=== PATIENT | female | born 1945 | race Caucasian/White ===

== ENCOUNTER → 2016-06-23 | Outpatient (CLI) | payer MEDICARE ==
--- NOTE | 2016-06-27 07:38 | MM ---
Reason for exam: screening (asymptomatic). Last mammogram was performed 1 year ago. History: Patient is postmenopausal and has history of other cancer at age 65. Cyst aspiration of the left breast, 2001. Took hormonal contraceptives for 10 years. Took estrogen for 10 years. Took other hormone for 5 years. Physical Findings: A clinical breast exam by your physician is recommended on an annual basis and results should be correlated with mammographic findings. MG 3D Screening Mammo W/Cad Bilateral CC and MLO view(s) were taken. Prior study comparison: June 23, 2015, bilateral MG 3d screening mammo w/cad. February 12, 2014, mammogram, performed at [facility]. January 25, 2013, mammogram, performed at [facility]. January 20, 2011, mammogram, performed at [place]. The breast tissue is heterogeneously dense. This may lower the sensitivity of mammography. No significant changes when compared with prior studies. ASSESSMENT: Negative, BI-RAD 1 RECOMMENDATION: Routine screening mammogram of both breasts in 1 year.
== END | disposition home or self-care (01) ==
LOC: RADMAMWWP 12:41
PROVIDERS: ATTEND Pediatrics
DX: Z12.31 Encounter for screening mammogram for malignant neoplasm of breast (principal)
CPT/HCPCS: 77063; G0202

== ENCOUNTER → 2016-06-28 | Outpatient (CLI) | payer MEDICARE ==
--- NOTE | 2016-06-28 11:02 | XR ---
EXAMINATION TYPE: XR chest 2V DATE OF EXAM: 06/28/2016 10:46 AM COMPARISON: Prior chest x-ray August 27, 2011. HISTORY: Cough and congestion. TECHNIQUE: Frontal and lateral views of the chest are obtained. FINDINGS: There is no focal air space opacity, pleural effusion, or pneumothorax seen. The cardiac silhouette size is within normal limits. The osseous structures are intact. IMPRESSION: No acute cardiopulmonary process.
== END ==
LOC: RADXRMAIN 10:23
PROVIDERS: ATTEND Nurse Practitioner Family
DX: J18.9 Pneumonia, unspecified organism (principal)
CPT/HCPCS: 71020

== ENCOUNTER 2016-12-30 09:11 | Inpatient (IN) | payer MEDICARE ==
[2016-12-30] MEDS ORDERED: methylPREDNISolone SOD SUCCI 125 MG/2 ML VIAL IV STA (09:37)
[2016-12-30] MEDS ORDERED: IPRATROPIUM 0.5 MG/2.5 ML NEBU INHALATION STA (09:37)
[2016-12-30] MEDS ORDERED: ALBUTEROL NEBULIZED 2.5 MG/3 ML INHALATION STA ×2 (09:37→10:11)
--- NOTE | 2016-12-30 09:40 | ED ---
General Adult HPI - General Chief complaint: Shortness of Breath Stated complaint: ALIYAH Time Seen by Provider: 12/30/16 09:15 Source: patient, RN notes reviewed Mode of arrival: ambulatory Limitations: no limitations - History of Present Illness Initial comments: This is a 71-year-old female who presents with a past medical history significant for asthma. Patient states she started having a sore throat and some ear pressure approximately a week ago. Patient states the symptoms continued and she was having more more shortness of breath so she was using her inhaler more often. Patient states that she went to see her primary medical care doctor a couple days ago he put her on steroids and antibiotics and told to continue to use her treatment. Patient states last night she woke up early this morning and was unable to breathe even after using her inhaler so she woke up this morning try to get to see her doctor but was unable to so she came to the emergency department. Patient states the shortness of breath seems worse now than it did earlier in the week per patient denies any chest pain. Patient denies abdominal pain patient denies nausea vomiting diarrhea. Patient denies any fever or chills. Patient denies any headache patient denies numbness weakness. Patient denies lightheadedness dizziness or near-syncopal episode. Patient denies any smoking history. - Related Data Home Medications Medication Instructions Recorded Confirmed Albuterol Inhaler [Ventolin Hfa 2 puff INHALATION RT-Q4H PRN 12/30/16 12/30/16 Inhaler] Ascorbic Acid [Vitamin C] 1,000 mg PO DAILY 12/30/16 12/30/16 Azithromycin [Zithromax Z-pack] See Taper PO DIRECTED 12/30/16 12/30/16 Bone Up 1 tab PO DAILY 12/30/16 12/30/16 Cholecalciferol [Vitamin D3] 1,000 unit PO DAILY 12/30/16 12/30/16 Estradiol [Yuvafem] 10 mcg VAGINAL MOTH 12/30/16 12/30/16 Multivitamins, Thera [Multivitamin 1 tab PO DAILY 12/30/16 12/30/16 (formulary)] [place] 3-6-9 1 cap PO DAILY 12/30/16 12/30/16 Vitamin B Complex 1 cap PO DAILY 12/30/16 12/30/16 predniSONE 40 mg PO DAILY 12/30/16 12/30/16 Allergies Allergy/AdvReac Type Severity Reaction Status Date / Time erythromycin base Allergy Rash/Hives Verified 12/30/16 09:58 Latex, Natural Rubber Allergy Itching Verified 12/30/16 09:58 Sulfa (Sulfonamide Allergy Rash/Hives Verified 12/30/16 09:58 Antibiotics) adhesive tape AdvReac Rash/Hives Verified 12/30/16 09:58 oyster extract AdvReac Vomiting Verified 12/30/16 09:58 Review of Systems ROS Statement: Those systems with pertinent positive or pertinent negative responses have been documented in the HPI. ROS Other: All systems not noted in ROS Statement are negative. Past Medical History Past Medical History: Asthma, Hyperlipidemia Additional Past Medical History / Comment(s): splenic marginal zone lymphoma 2009 History of Any Multi-Drug Resistant Organisms: None Reported Past Surgical History: Appendectomy, Hysterectomy, Tubal Ligation Smoking Status: Former smoker Past Alcohol Use History: None Reported Past Drug Use History: None Reported General Exam - General Exam Comments Initial Comments: GENERAL: Patient is well-developed and well-nourished. Patient is nontoxic and well- hydrated and is in mild distress. ENT: Neck is soft and supple. No significant lymphadenopathy is noted. Oropharynx is clear. Moist mucous membranes. Neck has full range of motion without eliciting any pain. EYES: The sclera were anicteric and conjunctiva were pink and moist. Extraocular movements were intact and pupils were equal round and reactive to light. Eyelids were unremarkable. PULMONARY: Unlabored respirations. Good breath sounds bilaterally. No audible rales rhonchi or wheezing was noted. CARDIOVASCULAR: There is a regular rate and rhythm without any murmurs gallops or rubs. ABDOMEN: Soft and nontender with normal bowel sounds. No palpable organomegaly was noted. There is no palpable pulsatile mass. SKIN: Skin is clear with no lesions or rashes and otherwise unremarkable. NEUROLOGIC: Patient is alert and oriented x3. Cranial nerves II through XII are grossly intact. Motor and sensory are also intact. Normal speech, volume and content. Symmetrical smile. MUSCULOSKELETAL: Normal extremities with adequate strength and full range of motion. LYMPHATICS: No significant lymphadenopathy is noted PSYCHIATRIC: Normal psychiatric evaluation. Normal interpersonal interactions appears functionally intact in deals appropriately with others. No signs of depression. No signs of anxiety. Limitations: no limitations Course Vital Signs 12/30/16 12/30/16 12/30/16 09:13 09:56 10:12 Temperature 98.9 F Pulse Rate 87 78 79 Respiratory 24 Rate Blood Pressure 205/80 O2 Sat by Pulse 99 Oximetry 12/30/16 12/30/16 12/30/16 10:14 10:24 10:50 Temperature Pulse Rate 83 88 103 H Respiratory 20 Rate Blood Pressure 142/62 O2 Sat by Pulse 97 Oximetry Medical Decision Making - Medical Decision Making EKG shows normal sinus rhythm at 83 bpm IA interval 254 QRS is 74 QT interval 370 QTC is 434. Patient's EKG shows no ST segment elevation or depression or T wave abnormalities are noted. Patient got 3 breathing treatment as well as emergency department I evaluated the patient after her breathing treatments and she continued to wheeze diffusely. Patient states she felt a little better but could tell she was still wheezing. Patient also received steroids here. I spoke with because I admitted the patient I wrote admitting orders. Continue breathing treatments and steroids on the floor. - Lab Data Result diagrams: 12/30/16 10:00 12/30/16 10:00 Lab Results 12/30/16 12/30/16 12/30/16 Range/Units 10:00 10:00 10:00 WBC 4.8 (3.8-10.6) k/uL RBC 4.23 (3.80-5.40) m/uL Hgb 12.8 (11.4-16.0) gm/dL Hct 37.5 (34.0-46.0) % MCV 88.7 (80.0-100.0) fL MCH 30.3 (25.0-35.0) pg MCHC 34.1 (31.0-37.0) g/dL RDW 14.1 (11.5-15.5) % Plt Count 160 (150-450) k/uL Neutrophils % 64 % Lymphocytes % 22 % Monocytes % 9 % Eosinophils % 1 % Basophils % 1 % Neutrophils # 3.1 (1.3-7.7) k/uL Lymphocytes # 1.0 (1.0-4.8) k/uL Monocytes # 0.4 (0-1.0) k/uL Eosinophils # 0.0 (0-0.7) k/uL Basophils # 0.0 (0-0.2) k/uL PT (9.0-12.0) sec INR (<1.2) APTT (22.0-30.0) sec Sodium 140 (137-145) mmol/L Potassium 4.2 (3.5-5.1) mmol/L Chloride 104 (98-107) mmol/L Carbon Dioxide 26 (22-30) mmol/L Anion Gap 10 mmol/L BUN 17 (7-17) mg/dL Creatinine 0.63 (0.52-1.04) mg/dL Est GFR (MDRD) Af Amer >60 (>60 ml/min/1.73 sqM) Est GFR (MDRD) Non-Af >60 (>60 ml/min/1.73 sqM) Glucose 110 H (74-99) mg/dL Calcium 8.8 (8.4-10.2) mg/dL Magnesium 2.0 (1.6-2.3) mg/dL Total Bilirubin 0.4 (0.2-1.3) mg/dL AST 27 (14-36) U/L ALT 40 (9-52) U/L Alkaline Phosphatase 62 (38-126) U/L Total Creatine Kinase 181 H (30-135) U/L CK-MB (CK-2) 2.9 H* (0.0-2.4) ng/mL CK-MB (CK-2) Rel Index 1.6 Troponin I <0.012 (0.000-0.034) ng/mL Total Protein 6.9 (6.3-8.2) g/dL Albumin 4.4 (3.5-5.0) g/dL 12/30/16 Range/Units 10:00 WBC (3.8-10.6) k/uL RBC (3.80-5.40) m/uL Hgb (11.4-16.0) gm/dL Hct (34.0-46.0) % MCV (80.0-100.0) fL MCH (25.0-35.0) pg MCHC (31.0-37.0) g/dL RDW (11.5-15.5) % Plt Count (150-450) k/uL Neutrophils % % Lymphocytes % % Monocytes % % Eosinophils % % Basophils % % Neutrophils # (1.3-7.7) k/uL Lymphocytes # (1.0-4.8) k/uL Monocytes # (0-1.0) k/uL Eosinophils # (0-0.7) k/uL Basophils # (0-0.2) k/uL PT 11.5 (9.0-12.0) sec INR 1.1 (<1.2) APTT 22.4 (22.0-30.0) sec Sodium (137-145) mmol/L Potassium (3.5-5.1) mmol/L Chloride (98-107) mmol/L Carbon Dioxide (22-30) mmol/L Anion Gap mmol/L BUN (7-17) mg/dL Creatinine (0.52-1.04) mg/dL Est GFR (MDRD) Af Amer (>60 ml/min/1.73 sqM) Est GFR (MDRD) Non-Af (>60 ml/min/1.73 sqM) Glucose (74-99) mg/dL Calcium (8.4-10.2) mg/dL Magnesium (1.6-2.3) mg/dL Total Bilirubin (0.2-1.3) mg/dL AST (14-36) U/L ALT (9-52) U/L Alkaline Phosphatase (38-126) U/L Total Creatine Kinase (30-135) U/L CK-MB (CK-2) (0.0-2.4) ng/mL CK-MB (CK-2) Rel Index Troponin I (0.000-0.034) ng/mL Total Protein (6.3-8.2) g/dL Albumin (3.5-5.0) g/dL Critical Care Time Critical Care Time: Yes Total Critical Care Time: 35 Disposition Clinical Impression: Acute severe exacerbation of asthma Disposition: ADMITTED IP TO THIS HOSP Referrals: Franki Diego MD [Primary Care Provider] - 1-2 days Time of Disposition: 11:31
[2016-12-30 10:15] LABS: Basophils % (A) 1 %; CH 31.6; CHCM 35.8; Eosinophils % (A) 1 %; HCT 37.5 % (34.0-46.0); HDW 2.99; HGB 12.8 gm/dL (11.4-16.0); Luc # (Auto) 0.19; Luc % (Auto) 4; Lymphocytes % (A) 22 %; MCH 30.3 pg (25.0-35.0); MCHC 34.1 g/dL (31.0-37.0); MCV 88.7 fL (80.0-100.0); Mean Platelet Volume 8.1; Monocytes # (A) 0.4 k/uL (0-1.0); Monocytes % (A) 9 %; Neutrophils # (A) 3.1 k/uL (1.3-7.7); Neutrophils % (A) 64 %; RBC 4.23 m/uL (3.80-5.40); RDW 14.1 % (11.5-15.5); WBC 4.8 k/uL (3.8-10.6); WBC (Perox) 5.41
[2016-12-30 10:25] LABS: ALT 40 U/L (9-52); AST 27 U/L (14-36); Alkaline Phosphatase 62 U/L (38-126); Anion Gap 10 mmol/L; Blood Urea Nitrogen 17 mg/dL (7-17); Calcium 8.8 mg/dL (8.4-10.2); Carbon Dioxide 26 mmol/L (22-30); Chloride 104 mmol/L (98-107); Glucose 110 mg/dL (74-99); Non-African American GFR(MDRD) >60 (>60 ml/min/1.73 sqM); Potassium 4.2 mmol/L (3.5-5.1); Sodium 140 mmol/L (137-145); Total Bilirubin 0.4 mg/dL (0.2-1.3); Total Protein 6.9 g/dL (6.3-8.2)
[2016-12-30 10:28] LABS: INR 1.1 (<1.2); Partial Thromboplastin Time 22.4 sec (22.0-30.0); Prothrombin Time 11.5 sec (9.0-12.0)
--- NOTE | 2016-12-30 10:49 | XR ---
EXAMINATION TYPE: XR chest 2V DATE OF EXAM: 12/30/2016 COMPARISON: 06/28/2016 INDICATION: Difficulty breathing TECHNIQUE: Frontal and lateral views of the chest are obtained. FINDINGS: The heart size is normal. The pulmonary vasculature is normal. The lungs are clear. IMPRESSION: 1. No acute pulmonary process.
[2016-12-30 10:50] LABS: Creatine Kinase 181 U/L (30-135)
[2016-12-30 10:56] LABS: Troponin I <0.012 ng/mL (0.000-0.034)
[2016-12-30 11:00] LABS: Creatine Kinase MB 2.9 ng/mL (0.0-2.4)
[2016-12-30] MEDS ORDERED: IPRATROPIUM-ALBUTEROL 3 ML NEB INHALATION PRN (11:31)
[2016-12-30] MEDS: IPRATROPIUM-ALBUTEROL 3 ML NEB INHALATION SCH ×3 (15:06→23:02)
--- NOTE | 2016-12-30 15:16 | P.HPIM ---
History of Present Illness This is a 71-year-old female who presents with a past medical history significant for asthma. Patient states she started having a sore throat and some ear pressure approximately a week ago. Patient states the symptoms continued and she was having more more shortness of breath so she was using her inhaler more often. Patient states that she went to see her primary medical care doctor a couple days ago he put her on steroids and antibiotics and told to continue to use her treatment. Patient states last night she woke up early this morning and was unable to breathe even after using her inhaler so she woke up this morning try to get to see her doctor but was unable to so she came to the emergency department. Patient states the shortness of breath seems worse now than it did earlier in the week per patient denies any chest pain. Patient denies abdominal pain patient denies nausea vomiting diarrhea. Patient denies any fever or chills. Patient denies any headache patient denies numbness weakness. Patient denies lightheadedness dizziness or near-syncopal episode. Patient denies any smoking history. Review of Systems REVIEW OF SYSTEMS: CONSTITUTIONAL: No fever, no malaise, no fatigue. HEENT: No recent visual problems or hearing problems. Denied any sore throat. CARDIOVASCULAR: No chest pain, orthopnea, PND, no palpitations, no syncope. PULMONARY: As mentioned in HPI patient does have cough with yellowish sputum production GASTROINTESTINAL: No diarrhea, no nausea, no vomiting, no abdominal pain. Normoactive bowel sounds. NEUROLOGICAL: No headaches, no weakness, no numbness. HEMATOLOGICAL: Denies any bleeding or petechiae. GENITOURINARY: Denies any burning micturition, frequency, or urgency. MUSCULOSKELETAL/RHEUMATOLOGICAL: Denies any joint pain, swelling, or any muscle pain. ENDOCRINE: Denies any polyuria or polydipsia. The rest of the 14-point review of systems is negative. Past Medical History Past Medical History: Asthma, Hyperlipidemia Additional Past Medical History / Comment(s): splenic marginal zone lymphoma 2009, osteopenia History of Any Multi-Drug Resistant Organisms: None Reported Past Surgical History: Appendectomy, Hysterectomy, Tubal Ligation Additional Past Surgical History / Comment(s): Colonoscopies/benign polypectomies, bone marrow aspiration. Past Anesthesia/Blood Transfusion Reactions: No Reported Reaction Smoking Status: Former smoker - Past Family History Father History Unknown: Yes Additional Family Medical History / Comment(s): Patient is adopted and does not know any of father's hx. Mother History Unknown: Yes Additional Family Medical History / Comment(s): Pt is adopted and does not know any of her natural mother's hx. She has learned that her grandmother and a cousin on her mother's side had breast cancer. Medications and Allergies Home Medications Medication Instructions Recorded Confirmed Type Albuterol Inhaler [Ventolin Hfa 2 puff INHALATION RT-Q4H PRN 12/30/16 12/30/16 History Inhaler] Ascorbic Acid [Vitamin C] 1,000 mg PO DAILY 12/30/16 12/30/16 History Azithromycin [Zithromax Z-pack] See Taper PO DIRECTED 12/30/16 12/30/16 History Bone Up 1 tab PO DAILY 12/30/16 12/30/16 History Cholecalciferol [Vitamin D3] 1,000 unit PO DAILY 12/30/16 12/30/16 History Estradiol [Yuvafem] 10 mcg VAGINAL MOTH 12/30/16 12/30/16 History Multivitamins, Thera [Multivitamin 1 tab PO DAILY 12/30/16 12/30/16 History (formulary)] Mozier 3-6-9 1 cap PO DAILY 12/30/16 12/30/16 History Vitamin B Complex 1 cap PO DAILY 12/30/16 12/30/16 History predniSONE 40 mg PO DAILY 12/30/16 12/30/16 History Allergies Allergy/AdvReac Type Severity Reaction Status Date / Time erythromycin base Allergy Rash/Hives Verified 12/30/16 09:58 Latex, Natural Rubber Allergy Itching Verified 12/30/16 09:58 Sulfa (Sulfonamide Allergy Rash/Hives Verified 12/30/16 09:58 Antibiotics) adhesive tape AdvReac Rash/Hives Verified 12/30/16 09:58 oyster extract AdvReac Vomiting Verified 12/30/16 09:58 Physical Exam Vitals: Vital Signs Temp Pulse Pulse Resp BP BP Pulse Ox 12/30/16 15:08 97 96 12/30/16 12:48 98.2 F 110 H 18 152/57 93 L 12/30/16 12:16 97.3 F L 101 H 20 157/70 96 12/30/16 10:50 103 H 20 142/62 97 12/30/16 10:24 88 12/30/16 10:14 83 12/30/16 10:12 79 12/30/16 09:56 78 12/30/16 09:13 98.9 F 87 24 205/80 99 Intake and Output 12/30/16 12/30/16 12/30/16 06:59 14:59 22:59 Other: Weight 73.482 kg Patient Weight 12/31/16 06:59 Weight 73.482 kg PHYSICAL EXAMINATION: GENERAL: The patient is alert and oriented x3, not in any acute distress. Well developed, well nourished. HEENT: Pupils are round and equally reacting to light. EOMI. No scleral icterus. No conjunctival pallor. Normocephalic, atraumatic. Patient does have posterior pharyngeal erythema. No thyromegaly. CARDIOVASCULAR: S1 and S2 present. No murmurs, rubs, or gallops. PULMONARY: Chest is clear to auscultation, no crackles, patient does have significant expiratory wheezing not using axial muscles of breathing ABDOMEN: Soft, nontender, nondistended, normoactive bowel sounds. No palpable organomegaly. MUSCULOSKELETAL: No joint swelling or deformity. EXTREMITIES: No cyanosis, clubbing, or pedal edema. NEUROLOGICAL: Gross neurological examination did not reveal any focal deficits. SKIN: No rashes. Results CBC & Chem 7: 12/30/16 10:00 12/30/16 10:00 Labs: Abnormal Lab Results - Last 24 Hours (Table) 12/30/16 12/30/16 Range/Units 10:00 10:00 Glucose 110 H (74-99) mg/dL Total Creatine Kinase 181 H (30-135) U/L CK-MB (CK-2) 2.9 H* (0.0-2.4) ng/mL Thrombosis Risk Factor Assmnt - Choose All That Apply Any of the Below Risk Factors Present?: Yes Each Factor Represents 1 point: Obesity (BMI >25) Other Risk Factors: Yes Each Risk Factor Represents 2 Points: Age 61-74 years Other congenital or acquired thrombophilia - If yes, enter type in comment: No Thrombosis Risk Factor Assessment Total Risk Factor Score: 3 Thrombosis Risk Factor Assessment Level: Moderate Risk Assessment and Plan Plan: #1 acute hypoxic respiratory failure: Seconded to status asthmaticus patient appears to have chronic severe intermittent asthma and some seasonal ALLERGIES patient is on systemic steroids inhalational treatments which will be continued. Patient will complete her azithromycin. #2 upper respiratory tract infection mostly bacterial along with Bactrim bronchitis and pharyngitis: Patient will complete her antibiotic therapy with azithromycin. Next and #3 hyperlipidemia: Continue with his statin.
[2016-12-30] MEDS: methylPREDNISolone SOD SUCCI 40 MG/ML 1 ML VIAL IV SCH (16:52)
[2016-12-30] MEDS ORDERED: methylPREDNISolone SOD SUCCI 125 MG/2 ML VIAL IV SCH (18:00)
[2016-12-30] MEDS: ACETAMINOPHEN TAB 325 MG TAB PO PRN (21:07)
[2016-12-31] MEDS: methylPREDNISolone SOD SUCCI 40 MG/ML 1 ML VIAL IV SCH ×2 (00:40→09:33)
[2016-12-31] MEDS: IPRATROPIUM-ALBUTEROL 3 ML NEB INHALATION SCH ×4 (01:16→13:30)
[2016-12-31] MEDS: ACETAMINOPHEN TAB 325 MG TAB PO PRN (06:49)
[2016-12-31 07:42] VITALS: BP 158/81; TEMP 97
[2016-12-31] MEDS ORDERED: AZITHROMYCIN 250MG TABLET PO SCH (09:00)
[2016-12-31 09:13] VITALS: RESP 16
--- NOTE | 2016-12-31 13:36 | P.DS ---
Providers Date of admission: 12/30/16 11:31 Attending physician: Joseph Mcginnis Primary care physician: Franki Zacariasmley [facility] Course: 69-year-old pleasant female was admitted for asthma exacerbation with significant improvement in her symptoms patient still has been able expiratory wheezing but saturating well upon ablation patient is being discharged today in stable medical condition to home. PHYSICAL EXAMINATION: GENERAL: The patient is alert and oriented x3, not in any acute distress. Well developed, well nourished. HEENT: Pupils are round and equally reacting to light. EOMI. No scleral icterus. No conjunctival pallor. Normocephalic, atraumatic. No pharyngeal erythema. No thyromegaly. CARDIOVASCULAR: S1 and S2 present. No murmurs, rubs, or gallops. PULMONARY: Chest is clear to auscultation, minimal expiratory wheezing ABDOMEN: Soft, nontender, nondistended, normoactive bowel sounds. No palpable organomegaly. MUSCULOSKELETAL: No joint swelling or deformity. EXTREMITIES: No cyanosis, clubbing, or pedal edema. NEUROLOGICAL: Gross neurological examination did not reveal any focal deficits. SKIN: No rashes. #1 acute hypoxic respiratory failure: Seconded to status asthmaticus patient appears to have chronic severe intermittent asthma and some seasonal ALLERGIES Patient will complete her azithromycin course #2 upper respiratory tract infection mostly bacterial along with Bactrim bronchitis and pharyngitis: Patient will complete her antibiotic therapy with azithromycin. Next and #3 hyperlipidemia: Continue with his statin. Plan - Discharge Summary New Discharge Prescriptions: New Budesonide-Formot 160-4.5 Mcg [Symbicort 160-4.5 Mcg Inhaler] 2 puff INHALATION BID #1 inhaler Montelukast [Singulair] 10 mg PO DAILY #30 tab predniSONE 10 mg PO DAILY #30 tab Discontinued predniSONE 40 mg PO DAILY No Action Cholecalciferol [Vitamin D3] 1,000 unit PO DAILY Multivitamins, Thera [Multivitamin (formulary)] 1 tab PO DAILY Vitamin B Complex 1 cap PO DAILY Ascorbic Acid [Vitamin C] 1,000 mg PO DAILY Albuterol Inhaler [Ventolin Hfa Inhaler] 2 puff INHALATION RT-Q4H PRN PRN Reason: Shortness Of Breath Estradiol [Yuvafem] 10 mcg VAGINAL MOTH Azithromycin [Zithromax Z-pack] See Taper PO DIRECTED [place] 3-6-9 1 cap PO DAILY Bone Up 1 tab PO DAILY Discharge Medication List Albuterol Inhaler [Ventolin Hfa Inhaler] 2 puff INHALATION RT-Q4H PRN 12/30/16 [ History] Ascorbic Acid [Vitamin C] 1,000 mg PO DAILY 12/30/16 [History] Azithromycin [Zithromax Z-pack] See Taper PO DIRECTED 12/30/16 [History] Bone Up 1 tab PO DAILY 12/30/16 [History] Cholecalciferol [Vitamin D3] 1,000 unit PO DAILY 12/30/16 [History] Estradiol [Yuvafem] 10 mcg VAGINAL MOTH 12/30/16 [History] Multivitamins, Thera [Multivitamin (formulary)] 1 tab PO DAILY 12/30/16 [History ] [place] 3-6-9 1 cap PO DAILY 12/30/16 [History] Vitamin B Complex 1 cap PO DAILY 12/30/16 [History] Budesonide-Formot 160-4.5 Mcg [Symbicort 160-4.5 Mcg Inhaler] 2 puff INHALATION BID #1 inhaler 12/31/16 [Rx] Montelukast [Singulair] 10 mg PO DAILY #30 tab 12/31/16 [Rx] predniSONE 10 mg PO DAILY #30 tab 12/31/16 [Rx] Follow up Appointment(s)/Referral(s): Franki Diego MD [Primary Care Provider] - 3 Days Discharge Disposition: HOME SELF-CARE
[2016-12-31 13:43] VITALS: PULSE 107
== END 2016-12-31 13:51 | disposition home or self-care (01) | DRG 203 ==
LOC: EC 09:11 → 4MS4W 11:31
PROVIDERS: ADMIT Internal Medicine; ATTEND Internal Medicine
DX: J45.22 Mild intermittent asthma with status asthmaticus (principal); E78.5 Hyperlipidemia, unspecified; J40 Bronchitis, not specified as acute or chronic; M85.80 Other specified disorders of bone density and structure, unspecified site; Z79.899 Other long term (current) drug therapy; Z79.52 Long term (current) use of systemic steroids; Z90.710 Acquired absence of both cervix and uterus; Z87.891 Personal history of nicotine dependence; Z85.72 Personal history of non-Hodgkin lymphomas; J02.9 Acute pharyngitis, unspecified; Z88.1 Allergy status to other antibiotic agents; Z91.02 Food additives allergy status; Z91.040 Latex allergy status; Z88.2 Allergy status to sulfonamides; Z91.048 Other nonmedicinal substance allergy status
CPT/HCPCS: 36415; 71020; 80053; 82550; 82553; 83735; 84484; 85025; 85610; 85730; 87040; 93005; 94640; 94760; 96374; 99291

== ENCOUNTER → 2017-07-04 | Outpatient (CLI) | payer MEDICARE ==
--- NOTE | 2017-07-05 11:51 | MM ---
Reason for exam: screening (asymptomatic). Last mammogram was performed 1 year ago. History: Patient is postmenopausal and has history of other cancer at age 65. Family history of breast cancer in grandmother and breast cancer in cousin. Cyst aspiration of the left breast, 2001. Took hormonal contraceptives for 10 years. Took estrogen for 10 years. Took other hormone for 5 years. Physical Findings: A clinical breast exam by your physician is recommended on an annual basis and results should be correlated with mammographic findings. MG 3D Screening Mammo W/Cad Bilateral CC and MLO view(s) were taken. Prior study comparison: June 23, 2016, bilateral MG 3d screening mammo w/cad. June 23, 2015, bilateral MG 3d screening mammo w/cad. The breast tissue is heterogeneously dense. This may lower the sensitivity of mammography. No suspicious abnormality. ASSESSMENT: Negative, BI-RAD 1 RECOMMENDATION: Routine screening mammogram of both breasts in 1 year.
== END | disposition home or self-care (01) ==
LOC: RADMAMWWP 13:10
PROVIDERS: ATTEND Pediatrics
DX: Z12.31 Encounter for screening mammogram for malignant neoplasm of breast (principal)
CPT/HCPCS: 77063; 77067

== ENCOUNTER → 2017-07-14 | Outpatient (CLI) | payer MEDICARE ==
--- NOTE | 2017-07-14 14:07 | XR ---
EXAMINATION TYPE: XR lumbosacral spine min 4V DATE OF EXAM: 07/14/2017 CLINICAL HISTORY: pain COMPARISON: NONE TECHNIQUE: Frontal, lateral, and oblique images of the lumbar spine are obtained. FINDINGS: There are 5 lumbar type vertebral bodies identified. The lumbar spine shows satisfactory alignment without evidence of acute fracture or dislocation. Vertebral body heights are within normal limits. Mild degenerative narrowing L4-5 and L5-S1. 2 mm anterolisthesis L4 and L5. The overlying soft tissue appears unremarkable. IMPRESSION: No acute fracture or dislocation is seen in the lumbar spine.ICD 10 NO FRACTURE, INITIAL EVALUATION
== END | disposition home or self-care (01) ==
LOC: RADXRMAIN 13:37
PROVIDERS: ATTEND Pediatrics
DX: M54.9 Dorsalgia, unspecified (principal)
CPT/HCPCS: 72110

== ENCOUNTER → 2018-08-07 | Outpatient (CLI) | payer MEDICARE ==
--- NOTE | 2018-08-07 13:40 | BD ---
EXAMINATION TYPE: Axial Bone Density DATE OF EXAM: 08/07/2018 COMPARISON: NONE CLINICAL HISTORY: Height: 60 Weight: 150.5 FRAX RISK QUESTIONS: Alcohol (3 or more units per day): no Family History (Parent hip fracture): no Glucocorticoids (More than 3mos): no (Ex: prednisone, prednisolone, methylprednisolone, dexamethasone, and hydrocortisone). History of Fracture in Adulthood: yes Secondary Osteoporosis: 1. Type 1 Diabetes: no 2. Hyperthyroidism: no 3. Menopause before 45: no 4. Malnutrition: no 5. Chronic liver disease: no Rheumatoid Arthritis: no Current Tobacco Use: no RISK FACTORS HISTORY OF: Family History of Osteoporosis: unsure Active: sometimes Diet low in dairy products/other sources of calcium: no Postmenopausal woman: age 54 Lost more than 2 inches in height since high school: no MEDICATIONS: vitamins/ inhaler Additional History: EXAM MEASUREMENTS: Bone mineral densitometry was performed using the [employer] System. Bone mineral density as measured about the Lumbar spine is: ----- L1-L4(G/cm2): 0.929 T Score Values are as follows: ----- L2: -2.4 ----- L3: -2.0 ----- L4: -2.0 ----- L1-L4: -2.1 Bone mineral density has: increased 3.3 % since study of: 04.04.2016 Bone mineral density about the R hip (g/cm2): 0.724 Bone mineral density about the L hip (g/cm2): 0.714 T Score values are as follows: -----R Neck: -2.3 -----L Neck: -2.3 -----R Total: -1.1 -----L Total: -1.3 Bone mineral density has: decreased -3.5 % since study of: 04.04.2016 IMPRESSION: Osteopenia NOTE: T-SCORE=SD OF THE YOUNG ADULT MEAN.
--- NOTE | 2018-08-08 11:20 | MM ---
Reason for exam: screening (asymptomatic). Last mammogram was performed 1 year and 1 month ago. History: Patient is postmenopausal and has history of other cancer at age 65. Family history of breast cancer in grandmother and breast cancer in cousin. Cyst aspiration of the left breast, 2001. Took hormonal contraceptives for 10 years. Took estrogen for 10 years. Took other hormone for 5 years. Physical Findings: A clinical breast exam by your physician is recommended on an annual basis and results should be correlated with mammographic findings. MG 3D Screening Mammo W/Cad Bilateral CC and MLO view(s) were taken. Prior study comparison: July 04, 2017, bilateral MG 3d screening mammo w/cad. June 23, 2016, bilateral MG 3d screening mammo w/cad. The breast tissue is heterogeneously dense. This may lower the sensitivity of mammography. Benign appearing bilateral calcifications. No suspicious abnormality. No significant changes when compared with prior studies. ASSESSMENT: Benign, BI-RAD 2 RECOMMENDATION: Routine screening mammogram of both breasts in 1 year.
== END | disposition home or self-care (01) ==
LOC: RADMAMWWP 10:49
PROVIDERS: ATTEND Pediatrics
DX: Z12.31 Encounter for screening mammogram for malignant neoplasm of breast (principal); M85.80 Other specified disorders of bone density and structure, unspecified site
CPT/HCPCS: 77063; 77067; 77080

== ENCOUNTER → 2018-08-21 | Outpatient (CLI) | payer MEDICARE ==
--- NOTE | 2018-08-21 16:18 | US ---
EXAMINATION TYPE: US abdomen limited DATE OF EXAM: 08/21/2018 COMPARISON: NONE CLINICAL HISTORY: R10.11 RUQ PAIN. EXAM MEASUREMENTS: Liver Length: 13.2 cm Gallbladder Wall: 0.3 cm CBD: 0.3 cm Right Kidney: 10.0 x 4.5 x 5.2 cm Pancreas: Tail obscured by overlying bowel gas, visualized portion wnl Liver: wnl Gallbladder: wnl Evidence for sonographic Soares's sign: no CBD: wnl Right Kidney: wnl IMPRESSION: 1. Normal right upper quadrant ultrasound
== END | disposition home or self-care (01) ==
LOC: RADUSWWP 08:59
PROVIDERS: ATTEND Pediatrics
DX: R10.11 Right upper quadrant pain (principal)
CPT/HCPCS: 76705

== ENCOUNTER → 2020-06-18 | Outpatient (CLI) | payer MEDICARE ==
--- NOTE | 2020-06-19 09:58 | MM ---
Reason for exam: screening (asymptomatic). Last mammogram was performed 1 year and 10 months ago. History: Patient is postmenopausal and has history of other cancer at age 65. Family history of breast cancer in grandmother and breast cancer in cousin. Cyst aspiration of the left breast, 2001. Took hormonal contraceptives for 10 years. Took estrogen for 10 years. Took other hormone for 5 years. Physical Findings: A clinical breast exam by your physician is recommended on an annual basis and results should be correlated with mammographic findings. MG 3D Screening Mammo W/Cad Bilateral CC and MLO view(s) were taken. Prior study comparison: August 07, 2018, bilateral MG 3d screening mammo w/cad. July 04, 2017, bilateral MG 3d screening mammo w/cad. The breast tissue is heterogeneously dense. This may lower the sensitivity of mammography. No significant changes when compared with prior studies. ASSESSMENT: Benign, BI-RAD 2 RECOMMENDATION: Routine screening mammogram of both breasts in 1 year.
== END ==
LOC: RADMAMWWP 13:27
PROVIDERS: ATTEND Pediatrics
DX: Z12.31 Encounter for screening mammogram for malignant neoplasm of breast (principal); Z78.0 Asymptomatic menopausal state
CPT/HCPCS: 77063; 77067

== ENCOUNTER → 2020-10-21 | Outpatient (CLI) | payer MEDICARE ==
--- NOTE | 2020-10-22 07:27 | ECHOF ---
Referral Reason:Murmur MEASUREMENTS -------- HEIGHT: 132.1 cm WEIGHT: 72.6 kg BP: RVIDd: 3.2 cm (< 3.3) IVSd: 1.4 cm (0.6 - 1.1) LVIDd: 4.3 cm (3.9 - 5.3) LVPWd: 1.6 cm (0.6 - 1.1) IVSs: 1.5 cm LVIDs: 3.6 cm LVPWs: 1.5 cm LAESV Index (A-L): 31.81 ml/m Ao Diam: 3.1 cm (2.0 - 3.7) AV Cusp: 2.4 cm (1.5 - 2.6) LA Diam: 3.9 cm (2.7 - 3.8) MV EXCURSION: 20.130 mm (> 18.000) MV EF SLOPE: 69 mm/s (70 - 150) EPSS: 0.2 cm MV E Art: 0.60 m/s MV DecT: 253 ms MV A Art: 1.05 m/s MV E/A Ratio: 0.57 RAP: 5.00 mmHg RVSP: 19.09 mmHg FINDINGS -------- Sinus rhythm. This was a technically good study. The left ventricular size is normal. There is mild concentric left ventricular hypertrophy. Overa ll left ventricular systolic function is normal with, an EF between 55 - 60 %. The right ventricle is normal in size. LA is midly dilated 29-33ml/m2. The right atrial size is normal. There is mild aortic valve sclerosis. There is no evidence of aortic regurgitation. Mild mitral annular calcification present. Mild mitral regurgitation is present. No regurgitation noted Right ventricular systolic pressure is normal at < 35 mmHg. There is no pulmonic regurgitation present. The aortic root size is normal. There is no pericardial effusion. CONCLUSIONS -------- 1. The left ventricular size is normal. 2. There is mild concentric left ventricular hypertrophy. 3. Overall left ventricular systolic function is normal with, an EF between 55 - 60 %. 4. The right ventricle is normal in size. 5. LA is midly dilated 29-33ml/m2. 6. The right atrial size is normal. 7. There is mild aortic valve sclerosis. 8. Mild mitral annular calcification present. 9. Mild mitral regurgitation is present. 10. No regurgitation noted 11. There is no pulmonic regurgitation present. 12. The aortic root size is normal. 13. There is no pericardial effusion. RELATIONSHIP SPECIALIST: Ludmila Bernard RDCS
== END | disposition home or self-care (01) ==
LOC: RADECHMAIN 13:00
PROVIDERS: ATTEND Pediatrics
DX: I05.1 Rheumatic mitral insufficiency (principal)
CPT/HCPCS: 93306

== ENCOUNTER → 2021-07-29 | Outpatient (CLI) | payer MEDICARE ==
--- NOTE | 2021-07-30 06:34 | XR ---
EXAMINATION TYPE: XR tibia fibula 2 views RT, XR ankle complete 3 views RT DATE OF EXAM: 07/29/2021 COMPARISON: NONE HISTORY: 76-year-old female pain, M25.571,M79.604 FINDINGS: Tibia/fibula: No acute fracture seen of the more proximal or mid tibia or fibula. May be some mild degenerative spu rring at the knee. Ankle: Ankle mortise is congruent with preservation of the distal tibiofibular overlap. Talar dome is intact . Small and delineation to the Achilles tendon. Subtalar joint aligned. IMPRESSION: Tibia/fibula and ankle without acute osseous abnormality seen.
== END | disposition home or self-care (01) ==
LOC: RADXRMAIN 14:44
PROVIDERS: ATTEND Pediatrics
DX: M25.571 Pain in right ankle and joints of right foot (principal); M79.604 Pain in right leg

== ENCOUNTER 2022-02-08 08:32 | Inpatient (IN) | payer MEDICARE ==
[2022-02-08] MEDS ORDERED: IPRATROPIUM-ALBUTEROL 3 ML NEB INHALATION STA (09:11)
--- NOTE | 2022-02-08 09:16 | ED ---
SOB HPI - General Chief Complaint: Shortness of Breath Stated Complaint: asthma Time Seen by Provider: 02/08/22 08:48 Source: patient Mode of arrival: ambulatory Limitations: no limitations - History of Present Illness Initial Comments: Patient is 77-year-old woman who presents to have evaluation for shortness of breath and cough. She states that she has history of asthma and hypertension. She noticed that her breathing had changed last week. She went to see Dr. Diego and his clinic and was given an albuterol treatment which did help a bit, she was then prescribed a course of steroid to take as well. She had started a course of azithromycin that she had available at home prior to going to the clinic. She states that over the weekend her symptoms continued though only moderately. This morning she awoke with cough and shortness of breath which was worse than it had been and states that she was barely able to walk across the parking lot. MD Complaint: shortness of breath, cough -: days(s) Severity scale (1-10): 0 Consistency: constant Improves With: nothing Worsens With: nothing Known History Of: asthma Associated Symptoms: cough Treatments Prior to Arrival: bronchodilator, other - Related Data Home Medications Medication Instructions Recorded Confirmed Albuterol Inhaler [Ventolin Hfa 2 puff INHALATION RT-Q4H PRN 12/30/16 02/08/22 Inhaler] Ascorbic Acid [Vitamin C] 1,000 mg PO DAILY 12/30/16 02/08/22 Cholecalciferol [Vitamin D3 (25 25 mcg PO DAILY 02/08/22 02/08/22 Mcg = 1000 Iu)] Vit C/E/Zn/Coppr/Lutein/Zeaxan 1 cap PO DAILY 02/08/22 02/08/22 [Preservision Areds 2 Softgel] Vitamin E (Dl,Tocopheryl Acet) 400 unit PO DAILY 02/08/22 02/08/22 [Vitamin E (400 Iu = 180 mg)] Previous Rx's Medication Instructions Recorded Beclomethasone Dip 80 Mcg/Puff 1 puff INHALATION BID #8.7 gm 02/11/22 [Qvar 80 mcg] Doxycycline [Vibramycin] 100 mg PO BID #6 capsule 02/11/22 Valsartan 320 mg PO HS #30 tab 02/11/22 amLODIPine [Norvasc] 10 mg PO DAILY #30 tab 02/11/22 predniSONE [Deltasone] See Taper PO DIRECTED #16 tab 02/11/22 Allergies Allergy/AdvReac Type Severity Reaction Status Date / Time erythromycin base Allergy Rash/Hives Verified 02/08/22 10:28 Latex, Natural Rubber Allergy Itching Verified 02/08/22 10:28 Sulfa (Sulfonamide Allergy Rash/Hives Verified 02/08/22 10:28 Antibiotics) on chest adhesive tape AdvReac Welts Verified 02/08/22 10:28 oyster extract AdvReac Vomiting Verified 02/08/22 10:28 Review of Systems ROS Statement: Those systems with pertinent positive or pertinent negative responses have been documented in the HPI. ROS Other: All systems not noted in ROS Statement are negative. Constitutional: Denies: fever, chills Respiratory: Reports: cough, dyspnea, wheezes. Denies: hemoptysis Cardiovascular: Denies: chest pain, palpitations, orthopnea, edema, syncope Gastrointestinal: Denies: abdominal pain, vomiting, diarrhea Genitourinary: Denies: dysuria, hematuria Musculoskeletal: Denies: back pain Skin: Denies: rash Neurological: Denies: headache, weakness, numbness Past Medical History Past Medical History: Asthma, Hyperlipidemia Additional Past Medical History / Comment(s): splenic marginal zone lymphoma 2009, osteopenia History of Any Multi-Drug Resistant Organisms: None Reported Past Surgical History: Appendectomy, Hysterectomy, Tubal Ligation Additional Past Surgical History / Comment(s): Colonoscopies/benign polypectomies, bone marrow aspiration. Past Anesthesia/Blood Transfusion Reactions: No Reported Reaction Past Psychological History: No Psychological Hx Reported Smoking Status: Never smoker Past Alcohol Use History: None Reported Past Drug Use History: None Reported - Past Family History Father History Unknown: Yes Additional Family Medical History / Comment(s): Patient is adopted and does not know any of father's hx. Mother History Unknown: Yes Additional Family Medical History / Comment(s): Pt is adopted and does not know any of her natural mother's hx. She has learned that her grandmother and a cousin on her mother's side had breast cancer. General Exam Limitations: no limitations General appearance: alert, in no apparent distress Head exam: Present: atraumatic, normocephalic Eye exam: Present: normal appearance. Absent: scleral icterus, conjunctival injection Neck exam: Present: normal inspection Respiratory exam: Present: wheezes. Absent: rales, rhonchi, accessory muscle use, decreased breath sounds, prolonged expiratory Cardiovascular Exam: Present: regular rate, normal rhythm, normal heart sounds. Absent: systolic murmur, diastolic murmur, rubs, gallop GI/Abdominal exam: Present: soft. Absent: distended, tenderness, guarding, rebound, rigid, mass Extremities exam: Present: normal inspection, normal capillary refill. Absent: pedal edema, calf tenderness Back exam: Present: normal inspection. Absent: CVA tenderness (R), CVA tenderness (L) Neurological exam: Present: alert Skin exam: Present: warm, dry, intact, normal color. Absent: rash Course Vital Signs 02/08/22 02/08/22 02/08/22 08:38 09:45 09:56 Temperature 97.9 F Pulse Rate 84 78 68 Pulse Rate [ Pulse Oximetery ] Respiratory 20 Rate Blood Pressure 210/77 Blood Pressure [Right Arm] O2 Sat by Pulse 96 Oximetry 02/08/22 02/08/22 02/08/22 10:00 11:00 11:11 Temperature Pulse Rate 72 79 74 Pulse Rate [ Pulse Oximetery ] Respiratory 18 20 Rate Blood Pressure 150/67 165/89 Blood Pressure [Right Arm] O2 Sat by Pulse 94 L 94 L Oximetry 02/08/22 02/08/22 02/08/22 11:26 12:00 13:20 Temperature 99.2 F Pulse Rate 71 71 84 Pulse Rate [ Pulse Oximetery ] Respiratory 20 20 Rate Blood Pressure 136/64 149/66 Blood Pressure [Right Arm] O2 Sat by Pulse 95 93 L Oximetry 02/08/22 02/08/22 02/08/22 15:26 15:37 16:30 Temperature 98.2 F Pulse Rate 78 87 86 Pulse Rate [ Pulse Oximetery ] Respiratory 20 Rate Blood Pressure 189/86 Blood Pressure [Right Arm] O2 Sat by Pulse 94 L Oximetry 02/08/22 02/08/22 02/08/22 19:33 19:39 22:00 Temperature 98.3 F Pulse Rate 86 88 Pulse Rate [ Pulse Oximetery ] Respiratory 22 Rate Blood Pressure Blood Pressure [Right Arm] O2 Sat by Pulse Oximetry 02/09/22 02/09/22 02/09/22 02:00 04:19 04:29 Temperature 98.4 F Pulse Rate 88 76 Pulse Rate [ 76 Pulse Oximetery ] Respiratory 21 18 Rate Blood Pressure 230/111 Blood Pressure 175/75 [Right Arm] O2 Sat by Pulse 93 L 98 Oximetry 02/09/22 02/09/22 02/09/22 04:36 05:07 06:16 Temperature Pulse Rate 78 84 Pulse Rate [ Pulse Oximetery ] Respiratory 18 Rate Blood Pressure 209/102 202/92 Blood Pressure [Right Arm] O2 Sat by Pulse 97 Oximetry 02/09/22 02/09/22 07:00 07:12 Temperature 98.6 F Pulse Rate 86 Pulse Rate [ 87 Pulse Oximetery ] Respiratory 18 18 Rate Blood Pressure 189/88 Blood Pressure 166/70 [Right Arm] O2 Sat by Pulse 95 97 Oximetry Medical Decision Making - Lab Data Result diagrams: 02/09/22 06:51 02/09/22 06:51 Lab Results 02/08/22 02/08/22 02/08/22 Range/Units 09:33 09:33 09:33 WBC 6.0 (3.8-10.6) k/uL RBC 4.28 (3.80-5.40) m/uL Hgb 13.2 (11.4-16.0) gm/dL Hct 36.9 (34.0-46.0) % MCV 86.3 (80.0-100.0) fL MCH 30.8 (25.0-35.0) pg MCHC 35.7 (31.0-37.0) g/dL RDW 13.2 (11.5-15.5) % Plt Count 179 (150-450) k/uL MPV 8.5 Immature Gran % (Auto) % Absolute Nucleated RBC (0.00-0.00) X 10*3/uL Neutrophils % 65 % Lymphocytes % 20 % Monocytes % 10 % Eosinophils % 1 % Basophils % 1 % Immature Gran # (0.00-0.04) X 10*3/uL Neutrophils # 3.9 (1.3-7.7) k/uL Lymphocytes # 1.2 (1.0-4.8) k/uL Monocytes # 0.6 (0-1.0) k/uL Eosinophils # 0.1 (0-0.7) k/uL Basophils # 0.1 (0-0.2) k/uL NRBC/100 WBC Diff (0.0-0.0) /100 WBCS PT 11.1 (9.0-12.0) sec INR 1.0 (<1.2) APTT 20.5 L (22.0-30.0) sec Sodium 138 (137-145) mmol/L Potassium 3.6 (3.5-5.1) mmol/L Chloride 103 (98-107) mmol/L Carbon Dioxide 26 (22-30) mmol/L Anion Gap 9 mmol/L BUN 17 (7-17) mg/dL Creatinine 0.54 (0.52-1.04) mg/dL Est GFR (CKD-EPI)AfAm >90 (>60 ml/min/1.73 sqM) Est GFR (CKD-EPI)NonAf >90 (>60 ml/min/1.73 sqM) BUN/Creatinine Ratio (12.00-20.00) Ratio Glucose 112 H (74-99) mg/dL Calcium 8.5 (8.4-10.2) mg/dL Total Bilirubin 0.6 (0.2-1.3) mg/dL AST 20 (14-36) U/L ALT 23 (4-34) U/L Alkaline Phosphatase 58 (38-126) U/L Troponin I (0.000-0.034) ng/mL NT-Pro-B Natriuret Pep pg/mL Total Protein 6.8 (6.3-8.2) g/dL Albumin 4.5 (3.5-5.0) g/dL TSH (0.350-5.500) uIU/mL Coronavirus (PCR) (Not Detectd) Influenza Type A RNA (Not Detectd) Influenza Type B (PCR) (Not Detectd) 02/08/22 02/08/22 02/08/22 Range/Units 09:33 09:33 09:33 WBC (3.8-10.6) k/uL RBC (3.80-5.40) m/uL Hgb (11.4-16.0) gm/dL Hct (34.0-46.0) % MCV (80.0-100.0) fL MCH (25.0-35.0) pg MCHC (31.0-37.0) g/dL RDW (11.5-15.5) % Plt Count (150-450) k/uL MPV Immature Gran % (Auto) % Absolute Nucleated RBC (0.00-0.00) X 10*3/uL Neutrophils % % Lymphocytes % % Monocytes % % Eosinophils % % Basophils % % Immature Gran # (0.00-0.04) X 10*3/uL Neutrophils # (1.3-7.7) k/uL Lymphocytes # (1.0-4.8) k/uL Monocytes # (0-1.0) k/uL Eosinophils # (0-0.7) k/uL Basophils # (0-0.2) k/uL NRBC/100 WBC Diff (0.0-0.0) /100 WBCS PT (9.0-12.0) sec INR (<1.2) APTT (22.0-30.0) sec Sodium (137-145) mmol/L Potassium (3.5-5.1) mmol/L Chloride (98-107) mmol/L Carbon Dioxide (22-30) mmol/L Anion Gap mmol/L BUN (7-17) mg/dL Creatinine (0.52-1.04) mg/dL Est GFR (CKD-EPI)AfAm (>60 ml/min/1.73 sqM) Est GFR (CKD-EPI)NonAf (>60 ml/min/1.73 sqM) BUN/Creatinine Ratio (12.00-20.00) Ratio Glucose (74-99) mg/dL Calcium (8.4-10.2) mg/dL Total Bilirubin (0.2-1.3) mg/dL AST (14-36) U/L ALT (4-34) U/L Alkaline Phosphatase (38-126) U/L Troponin I <0.012 (0.000-0.034) ng/mL NT-Pro-B Natriuret Pep 139 pg/mL Total Protein (6.3-8.2) g/dL Albumin (3.5-5.0) g/dL TSH (0.350-5.500) uIU/mL Coronavirus (PCR) (Not Detectd) Influenza Type A RNA Not Detected (Not Detectd) Influenza Type B (PCR) Not Detected (Not Detectd) 02/08/22 02/09/22 02/09/22 Range/Units 09:33 06:51 06:51 WBC 6.62 (3.8-10.6) k/uL RBC 4.26 (3.80-5.40) m/uL Hgb 12.7 (11.4-16.0) gm/dL Hct 37.4 (34.0-46.0) % MCV 87.8 (80.0-100.0) fL MCH 29.8 (25.0-35.0) pg MCHC 34.0 (31.0-37.0) g/dL RDW 13.3 (11.5-15.5) % Plt Count 183 (150-450) k/uL MPV 10.9 Immature Gran % (Auto) 1.5 % Absolute Nucleated RBC 0 (0.00-0.00) X 10*3/uL Neutrophils % 65.3 % Lymphocytes % 20.2 % Monocytes % 11.9 % Eosinophils % 0.5 % Basophils % 0.6 % Immature Gran # 0.10 H (0.00-0.04) X 10*3/uL Neutrophils # 4.32 (1.3-7.7) k/uL Lymphocytes # 1.34 (1.0-4.8) k/uL Monocytes # 0.79 (0-1.0) k/uL Eosinophils # 0.03 L (0-0.7) k/uL Basophils # 0.04 (0-0.2) k/uL NRBC/100 WBC Diff 0 (0.0-0.0) /100 WBCS PT (9.0-12.0) sec INR (<1.2) APTT (22.0-30.0) sec Sodium 139 (137-145) mmol/L Potassium 3.6 (3.5-5.1) mmol/L Chloride 101 (98-107) mmol/L Carbon Dioxide 25.4 (22-30) mmol/L Anion Gap 12.60 mmol/L BUN 15.7 (7-17) mg/dL Creatinine 0.7 (0.52-1.04) mg/dL Est GFR (CKD-EPI)AfAm 96.2 (>60 ml/min/1.73 sqM) Est GFR (CKD-EPI)NonAf 83.0 (>60 ml/min/1.73 sqM) BUN/Creatinine Ratio 22.43 H (12.00-20.00) Ratio Glucose 121 H (74-99) mg/dL Calcium 8.8 (8.4-10.2) mg/dL Total Bilirubin (0.2-1.3) mg/dL AST (14-36) U/L ALT (4-34) U/L Alkaline Phosphatase (38-126) U/L Troponin I (0.000-0.034) ng/mL NT-Pro-B Natriuret Pep pg/mL Total Protein (6.3-8.2) g/dL Albumin (3.5-5.0) g/dL TSH 3.100 (0.350-5.500) uIU/mL Coronavirus (PCR) Not Detected (Not Detectd) Influenza Type A RNA (Not Detectd) Influenza Type B (PCR) (Not Detectd) - EKG Data -: EKG Interpreted by Me EKG shows normal: sinus rhythm, intervals (FL interval 166 ms, QTC 413 ms, both normal. QRS duration 137 ms, prolonged consistent with the right bundle-branch block.), QRS complexes (Right bundle-branch block.) Rate: normal (Rate 71 bpm) Disposition Clinical Impression: Asthma Disposition: ADMITTED IP TO THIS HOSP Is patient prescribed a controlled substance at d/c from ED?: No
[2022-02-08 09:45] LABS: Basophils # (A) 0.1 k/uL (0-0.2); Basophils % (A) 1 %; Eosinophils # (A) 0.1 k/uL (0-0.7); Eosinophils % (A) 1 %; HCT 36.9 % (34.0-46.0); HGB 13.2 gm/dL (11.4-16.0); Lymphocytes # (A) 1.2 k/uL (1.0-4.8); Lymphocytes % (A) 20 %; MCH 30.8 pg (25.0-35.0); MCHC 35.7 g/dL (31.0-37.0); MCV 86.3 fL (80.0-100.0); Mean Platelet Volume 8.5; Monocytes # (A) 0.6 k/uL (0-1.0); Monocytes % (A) 10 %; Neutrophils # (A) 3.9 k/uL (1.3-7.7); Neutrophils % (A) 65 %; Platelet Count 179 k/uL (150-450); RBC 4.28 m/uL (3.80-5.40); RDW 13.2 % (11.5-15.5)
--- NOTE | 2022-02-08 09:52 | XR ---
EXAMINATION TYPE: XR chest 2V DATE OF EXAM: 02/08/2022 9:46 AM COMPARISON: Chest radiographs from 12/30/2016. TECHNIQUE: XR chest 2V Frontal and lateral views of the chest. CLINICAL INDICATION:Female, 77 years old with history of difficulty breathing; FINDINGS: Lungs/Pleura: There is no evidence of pleural effusion, focal consolidation, or pneumothorax. Chroni c senescent parenchymal changes. Pulmonary vascularity: Unremarkable. Heart/mediastinum: Cardiomediastinal silhouette is unremarkable. Musculoskeletal: No acute osseous pathology. IMPRESSION: No acute cardiopulmonary disease/process. No significant change from prior examination.
[2022-02-08 09:59] LABS: ALT 23 U/L (4-34); AST 20 U/L (14-36); African American GFR (CKD) >90 (>60 ml/min/1.73 sqM); Albumin 4.5 g/dL (3.5-5.0); Alkaline Phosphatase 58 U/L (38-126); Anion Gap 9 mmol/L; Blood Urea Nitrogen 17 mg/dL (7-17); Calcium 8.5 mg/dL (8.4-10.2); Carbon Dioxide 26 mmol/L (22-30); Chloride 103 mmol/L (98-107); Glucose 112 mg/dL (74-99); Non-African American GFR(CKD) >90 (>60 ml/min/1.73 sqM); Potassium 3.6 mmol/L (3.5-5.1); Sodium 138 mmol/L (137-145); Total Bilirubin 0.6 mg/dL (0.2-1.3); Total Protein 6.8 g/dL (6.3-8.2)
[2022-02-08 10:03] LABS: Prothrombin Time 11.1 sec (9.0-12.0)
[2022-02-08 10:07] LABS: Partial Thromboplastin Time 20.5 sec (22.0-30.0)
[2022-02-08] MEDS ORDERED: ALBUTEROL NEBULIZED 2.5 MG/3 ML INHALATION STA (10:38)
[2022-02-08] MEDS ORDERED: predniSONE 20 MG TAB PO STA (10:38)
[2022-02-08] MEDS ORDERED: NALOXONE 0.4 MG/ML 1 ML VIAL IVP PRN (12:53)
[2022-02-08] MEDS: IPRATROPIUM-ALBUTEROL 3 ML NEB INHALATION SCH ×2 (15:26→19:25)
[2022-02-08] MEDS: HEPARIN SODIUM,PORCINE/PF 5,000 UNIT/0.5 ML SYRINGE SQ SCH ×2 (16:42→17:00)
[2022-02-08] MEDS: carvediloL 3.125 MG TAB PO SCH (16:42)
[2022-02-08] MEDS: ACETAMINOPHEN TAB 325 MG TAB PO PRN (16:42)
--- NOTE | 2022-02-08 22:25 | P.HPIM ---
History of Present Illness H&P Date: 02/08/22 Chief Complaint: Shortness of breath Patient is a 77-year-old female with a known history of asthma, hyperlipidemia presents to ER with complaints of worsening shortness of breath. Patient states that on Monday she started having sore throat and went to see her primary care physician. Patient was given steroid tablets and azithromycin antibiotic course. Patient took last 3 days without significant improvement and presented to ER. Otherwise patient denied any complaints of chest pain. No fever no chills. Patient was also complaining of sinus pain and sore throat. Cough with whitish initially and then into light yellow color. No nausea vomiting. Patient does have upper abdominal discomfort with cough. Next and chest x-ray showed no acute cardio pulmonary disease/process. No significant change from previous exam. Next and EKG showed normal sinus rhythm Laboratory data showed WBC 6.0 hemoglobin 13.2 and platelets 179 Sodium 138 potassium 3.6 chloride 103 bicarb is 26 BUN 17 and creatinine 0.54 living enzymes are not elevated Troponin 1 negative ProBNP 139): 19 not detected. Influenza A and B- Review of Systems Constitutional: Patient denies any fever or chills . No generalized weakness or weight loss. Abdomen: Patient denied nausea vomiting and diarrhea and abdominal pain. Cardiovascular: Patient denies any chest pain or short of breath no palpitations. Respiratory: Patient does have cough with yellow sputum production and shortness of breath Neurologic: Patient denied any numbness or tingling headache. Musculoskeletal: Patient denies any complaints of joint swelling or deformity. Skin: Negative Psychiatric: Negative Endocrine: No heat or cold intolerance. No recent weight gain. Genitourinary: No dysuria or hematuria. All other 14 point ROS negative except the above Past Medical History Past Medical History: Asthma, Hyperlipidemia Additional Past Medical History / Comment(s): splenic marginal zone lymphoma 2009, osteopenia History of Any Multi-Drug Resistant Organisms: None Reported Past Surgical History: Appendectomy, Hysterectomy, Tubal Ligation Additional Past Surgical History / Comment(s): Colonoscopies/benign polypectom ies, bone marrow aspiration. Past Anesthesia/Blood Transfusion Reactions: No Reported Reaction Past Psychological History: No Psychological Hx Reported Smoking Status: Never smoker Past Alcohol Use History: None Reported Past Drug Use History: None Reported - Past Family History Father History Unknown: Yes Additional Family Medical History / Comment(s): Patient is adopted and does not know any of father's hx. Mother History Unknown: Yes Additional Family Medical History / Comment(s): Pt is adopted and does not know any of her natural mother's hx. She has learned that her grandmother and a cousin on her mother's side had breast cancer. Medications and Allergies Home Medications Medication Instructions Recorded Confirmed Type Albuterol Inhaler [Ventolin Hfa 2 puff INHALATION RT-Q4H PRN 12/30/16 02/08/22 History Inhaler] Ascorbic Acid [Vitamin C] 1,000 mg PO DAILY 12/30/16 02/08/22 History Azithromycin [Zithromax Z-pack] See Taper PO DAILY 12/30/16 02/08/22 History Cholecalciferol [Vitamin D3 (25 25 mcg PO DAILY 02/08/22 02/08/22 History Mcg = 1000 Iu)] Vit C/E/Zn/Coppr/Lutein/Zeaxan 1 cap PO DAILY 02/08/22 02/08/22 History [Preservision Areds 2 Softgel] Vitamin E (Dl,Tocopheryl Acet) 400 unit PO DAILY 02/08/22 02/08/22 History [Vitamin E (400 Iu = 180 mg)] carvediloL [Coreg] 3.125 mg PO BID 02/08/22 02/08/22 History predniSONE [Deltasone] See Taper PO DIRECTED 02/08/22 02/08/22 History Allergies Allergy/AdvReac Type Severity Reaction Status Date / Time erythromycin base Allergy Rash/Hives Verified 02/08/22 10:28 Latex, Natural Rubber Allergy Itching Verified 02/08/22 10:28 Sulfa (Sulfonamide Allergy Rash/Hives Verified 02/08/22 10:28 Antibiotics) on chest adhesive tape AdvReac Welts Verified 02/08/22 10:28 oyster extract AdvReac Vomiting Verified 02/08/22 10:28 Physical Exam Vitals: Vital Signs Temp Pulse Resp BP Pulse Ox 02/08/22 15:26 78 02/08/22 13:20 99.2 F 84 20 149/66 93 L 02/08/22 12:00 71 20 136/64 95 02/08/22 11:26 71 02/08/22 11:11 74 02/08/22 11:00 79 20 165/89 94 L 02/08/22 10:00 72 18 150/67 94 L 02/08/22 09:56 68 02/08/22 09:45 78 02/08/22 08:38 97.9 F 84 20 210/77 96 Intake and Output 02/08/22 02/08/22 02/08/22 06:59 14:59 22:59 Other: Weight 74.843 kg PHYSICAL EXAMINATION: Patient is lying in the bed comfortably, no acute distress, awake alert and oriented.. HEENT: Normocephalic. Neck is supple. Pupils reactive. Nostrils clear. Oral cavity is moist. Neck reveals no JVD, carotid bruits, or thyromegaly. CHEST EXAMINATION: Trachea is central. Symmetrical expansion. Bilateral diffuse wheezing and scattered rhonchi and coarse sounds. Nonlabored breathing.. CARDIAC: Normal S1, S2 with no gallops. No murmurs ABDOMEN: Soft. Bowel sounds normal. No organomegaly. No abdominal bruits. Extremities: reveal no edema. No clubbing or cyanosis Neurologically awake, alert, oriented x3 with well-coordinated movements. No focal deficits noted Skin: No rash or skin lesions. Psychiatric: Coperative. Nonsuicidal Musculoskeletal: No joint swelling or deformity. Normal range of motion. Results CBC & Chem 7: 02/08/22 09:33 02/08/22 09:33 Labs: Abnormal Lab Results - Last 24 Hours (Table) 02/08/22 02/08/22 Range/Units 09:33 09:33 APTT 20.5 L (22.0-30.0) sec Glucose 112 H (74-99) mg/dL Thrombosis Risk Factor Assmnt - DVT/VTE Prophylaxis DVT/VTE Prophylaxis: Pharmacologic Prophylaxis ordered Assessment and Plan Assessment: Shortness of breath secondary to acute asthma exacerbation Possible acute sinusitis Uncontrolled hypertension Hyperlipidemia DVT prophylaxis with heparin subcu Plan: Patient will be continued on prednisone 40 mg daily and DuoNeb's every 4 hourly. Continue with oxygen supplementation as needed. Patient was started on antibiotics ceftriaxone and follow up closely. Continue with home blood pressure medications including Coreg and titrate as needed. Continue to follow closely. Time with Patient: Greater than 30
[2022-02-08] MEDS ORDERED: ALPRAZolam 0.25 MG TAB PO STA (23:49)
[2022-02-09] MEDS ORDERED: lisinopriL 5 MG TAB PO SCH (00:15)
[2022-02-09] MEDS: ACETAMINOPHEN TAB 325 MG TAB PO PRN ×2 (00:43→23:35)
[2022-02-09] MEDS: HEPARIN SODIUM,PORCINE/PF 5,000 UNIT/0.5 ML SYRINGE SQ SCH ×3 (00:54→16:54)
[2022-02-09] MEDS: carvediloL 3.125 MG TAB PO SCH ×2 (01:56→17:28)
[2022-02-09] MEDS: ALBUTEROL NEBULIZED 2.5 MG/3 ML INHALATION PRN (04:27)
[2022-02-09] MEDS ORDERED: hydrALAZINE HCL 20 MG/ML 1 ML VIAL IVP STA (06:28)
[2022-02-09] MEDS: IPRATROPIUM-ALBUTEROL 3 ML NEB INHALATION SCH ×4 (08:22→21:32)
[2022-02-09] MEDS: predniSONE 20 MG TAB PO SCH (09:08)
--- NOTE | 2022-02-09 10:04 | P.CRDCN ---
History of Present Illness Consult date: 02/09/22 History of present illness: HISTORY OF PRESENT ILLNESS: This is a 77 year old female with a past medical history significant for asthma, hypertension, hyperlipidemia, and anxiety. Patient follows in the office with Dr. Leal. We have been asked to see the patient in consultation for hypertension. Patient examined at the bedside. Patient presented to the hospital with a chief complaint of shortness of breath. Patient states she was started on oral steroids by her primary care physician on Monday. She denies any chest pain or pressure. Patient's blood pressures were found to be significantly elevated with a systolic ranging between [id number]. She received a dose of IV hydralazine this morning per primary medicine. * EKG reveals sinus mechanism with right bundle branch block. * Chest xray negative for acute process * Laboratory data: WBC 6.0. Hemoglobin 13.2. Platelet count 179. Sodium 138. Potassium 3.6. BUN 17. Creatinine 0.54. Troponin negative 1. ProBNP 139. * Current home cardiac medications include carvedilol 3.125 mg twice a day * Most recent echocardiogram obtained in October 2020 revealed ejection fraction 55-60%, mild MR REVIEW OF SYSTEMS: At the time of my exam: CONSTITUTIONAL: Denies fever or chills. HEENT: Denies blurred vision, vision changes, or eye pain. Denies hemoptysis CARDIOVASCULAR: Denies chest pain. Denies orthopnea. Denies PND. Denies palpitations RESPIRATORY: Denies shortness of breath. GASTROINTESTINAL: Denies abdominal pain. Denies nausea or vomiting. HEMATOLOGIC: Denies bleeding disorders. GENITOURINARY: Denies any blood in urine. SKIN: Denies pruitis. Denies rash. PHYSICAL EXAM: VITAL SIGNS: Reviewed. GENERAL: Well-developed in no acute distress. HEENT: Head is normocephalic. Pupils are equal, round. Sclerae anicteric. Mucous membranes of the mouth are moist. Neck supple. No JVD or thyromegaly LUNGS: Respirations even and unlabored. Lungs with decreased air exchange and expiratory wheezing noted HEART: Regular rate and rhythm. S1 and S2 heard. ABDOMEN: Soft. Nondistended. Nontender. EXTREMITIES: Normal range of motion. No clubbing or cyanosis. Peripheral pulses intact. No lower extremity edema NEUROLOGIC: Awake and alert. Oriented x 3. ASSESSMENT: Shortness of breath Acute asthma exacerbation Hypertensive emergency Hyperlipidemia Anxiety PLAN: Continue current dose of carvedilol Discontinue lisinopril Begin valsartan 320 mg daily Continue to monitor blood pressure If blood pressure remains uncontrolled tomorrow, we will add amlodipine No further IV anti-hypertensive medications to be given Further recommendations pending patient's course Nurse practitioner note has been reviewed by physician. Signing provider agrees with the documented findings, assessment, and plan of care. Past Medical History Past Medical History: Asthma, Hyperlipidemia Additional Past Medical History / Comment(s): splenic marginal zone lymphoma 2009, osteopenia History of Any Multi-Drug Resistant Organisms: None Reported Past Surgical History: Appendectomy, Hysterectomy, Tubal Ligation Additional Past Surgical History / Comment(s): Colonoscopies/benign polypectomies, bone marrow aspiration. Past Anesthesia/Blood Transfusion Reactions: No Reported Reaction Past Psychological History: No Psychological Hx Reported Smoking Status: Never smoker Past Alcohol Use History: None Reported Past Drug Use History: None Reported - Past Family History Father History Unknown: Yes Additional Family Medical History / Comment(s): Patient is adopted and does not know any of father's hx. Mother History Unknown: Yes Additional Family Medical History / Comment(s): Pt is adopted and does not know any of her natural mother's hx. She has learned that her grandmother and a cousin on her mother's side had breast cancer. Medications and Allergies Home Medications Medication Instructions Recorded Confirmed Type Albuterol Inhaler [Ventolin Hfa 2 puff INHALATION RT-Q4H PRN 12/30/16 02/08/22 History Inhaler] Ascorbic Acid [Vitamin C] 1,000 mg PO DAILY 12/30/16 02/08/22 History Azithromycin [Zithromax Z-pack] See Taper PO DAILY 12/30/16 02/08/22 History Cholecalciferol [Vitamin D3 (25 25 mcg PO DAILY 02/08/22 02/08/22 History Mcg = 1000 Iu)] Vit C/E/Zn/Coppr/Lutein/Zeaxan 1 cap PO DAILY 02/08/22 02/08/22 History [Preservision Areds 2 Softgel] Vitamin E (Dl,Tocopheryl Acet) 400 unit PO DAILY 02/08/22 02/08/22 History [Vitamin E (400 Iu = 180 mg)] carvediloL [Coreg] 3.125 mg PO BID 02/08/22 02/08/22 History predniSONE [Deltasone] See Taper PO DIRECTED 02/08/22 02/08/22 History Allergies Allergy/AdvReac Type Severity Reaction Status Date / Time erythromycin base Allergy Rash/Hives Verified 02/08/22 10:28 Latex, Natural Rubber Allergy Itching Verified 02/08/22 10:28 Sulfa (Sulfonamide Allergy Rash/Hives Verified 02/08/22 10:28 Antibiotics) on chest adhesive tape AdvReac Welts Verified 02/08/22 10:28 oyster extract AdvReac Vomiting Verified 02/08/22 10:28 Physical Exam Vitals: Vital Signs Temp Pulse Pulse Resp BP BP Pulse Ox 02/09/22 07:12 86 18 189/88 97 02/09/22 06:16 84 18 202/92 97 02/09/22 05:07 209/102 02/09/22 04:36 78 02/09/22 04:29 76 02/09/22 04:19 88 18 230/111 98 02/09/22 02:00 98.4 F 76 21 175/75 93 L 02/08/22 22:00 98.3 F 22 02/08/22 19:39 88 02/08/22 19:33 86 02/08/22 16:30 98.2 F 86 20 189/86 94 L 02/08/22 15:37 87 02/08/22 15:26 78 02/08/22 13:20 99.2 F 84 20 149/66 93 L 02/08/22 12:00 71 20 136/64 95 02/08/22 11:26 71 02/08/22 11:11 74 02/08/22 11:00 79 20 165/89 94 L 02/08/22 10:00 72 18 150/67 94 L 02/08/22 09:56 68 02/08/22 09:45 78 02/08/22 08:38 97.9 F 84 20 210/77 96 Intake and Output 02/08/22 02/09/22 02/09/22 22:59 06:59 14:59 Intake Total 570 Balance 570 Intake: Oral 570 Other: Voiding Method Toilet Toilet # Voids 3 Results 02/08/22 09:33 02/08/22 09:33 Cardiac Enzymes 02/08/22 02/08/22 Range/Units 09:33 09:33 AST 20 (14-36) U/L Troponin I <0.012 (0.000-0.034) ng/mL Coagulation 02/08/22 Range/Units 09:33 PT 11.1 (9.0-12.0) sec APTT 20.5 L (22.0-30.0) sec CBC 02/08/22 Range/Units 09:33 WBC 6.0 (3.8-10.6) k/uL RBC 4.28 (3.80-5.40) m/uL Hgb 13.2 (11.4-16.0) gm/dL Hct 36.9 (34.0-46.0) % Plt Count 179 (150-450) k/uL Comprehensive Metabolic Panel 02/08/22 Range/Units 09:33 Sodium 138 (137-145) mmol/L Potassium 3.6 (3.5-5.1) mmol/L Chloride 103 (98-107) mmol/L Carbon Dioxide 26 (22-30) mmol/L BUN 17 (7-17) mg/dL Creatinine 0.54 (0.52-1.04) mg/dL Glucose 112 H (74-99) mg/dL Calcium 8.5 (8.4-10.2) mg/dL AST 20 (14-36) U/L ALT 23 (4-34) U/L Alkaline Phosphatase 58 (38-126) U/L Total Protein 6.8 (6.3-8.2) g/dL Albumin 4.5 (3.5-5.0) g/dL Current Medications Generic Name Dose Route Start Last Admin Trade Name Freq PRN Reason Stop Dose Admin Acetaminophen 650 mg 02/08/22 13:07 02/09/22 00:43 Acetaminophen Tab 325 Mg Tab PO 650 mg Q4HR PRN Administration Mild Pain or Fever > 100.5 Albuterol Sulfate 2.5 mg 02/08/22 13:09 02/09/22 04:27 Albuterol Nebulized 2.5 Mg/3 Ml INHALATION 2.5 mg RT-Q4H PRN Administration Dyspnea Albuterol/Ipratropium 3 ml 02/08/22 16:00 02/08/22 19:25 Ipratropium-Albuterol 3 Ml Neb INHALATION 3 ml RT-QID BROWN Administration Carvedilol 3.125 mg 02/08/22 17:30 02/09/22 01:56 Carvedilol 3.125 Mg Tab PO 3.125 mg BID-W/MEALS BROWN Administration Heparin Sodium (Porcine) 5,000 unit 02/08/22 16:00 02/09/22 00:54 Heparin Sodium,Porcine/Pf 5,000 Unit/0.5 Ml Syringe SQ Not Given Q8HR [facility] Ceftriaxone Sodium 1 gm/ 50 mls @ 100 mls/hr 02/08/22 16:00 02/08/22 16:41 Sodium Chloride IVPB 100 mls/hr Q24H BROWN Administration Protocol Lisinopril 5 mg 02/09/22 00:15 02/09/22 00:43 Lisinopril 5 Mg Tab PO 5 mg DAILY BROWN Administration Naloxone HCl 0.2 mg 02/08/22 12:53 Naloxone 0.4 Mg/Ml 1 Ml Vial IVP Q2M PRN Opioid Reversal Prednisone 40 mg 02/09/22 09:00 Prednisone 20 Mg Tab PO 02/13/22 09:01 DAILY BROWN Intake and Output 02/08/22 02/09/22 02/09/22 22:59 06:59 14:59 Intake Total 570 Balance 570 Intake: Oral 570 Other: Voiding Method Toilet Toilet # Voids 3 02/08/22 09:33 02/08/22 09:33
[2022-02-09] MEDS: VALSARTAN 160 MG TAB PO SCH (11:20)
[2022-02-09] MEDS: BUDESONIDE 1 MG/2 ML NEBU INHALATION SCH ×3 (11:46→21:32)
[2022-02-09 11:51] LABS: Basophils # (A) 0.04 X 10*3/uL (0.00-0.10); Basophils % (A) 0.6 %; Eosinophils # (A) 0.03 X 10*3/uL (0.04-0.35); Eosinophils % (A) 0.5 %; HCT 37.4 % (37.2-46.3); HGB 12.7 g/dL (12.0-15.0); Immature Grans, Automated 1.5 %; Lymphocytes # (A) 1.34 X 10*3/uL (0.90-5.00); Lymphocytes % (A) 20.2 %; MCH 29.8 pg (27.0-32.0); MCV 87.8 fL (80.0-97.0); Mean Platelet Volume 10.9 fL (9.5-12.2); Monocytes # (A) 0.79 X 10*3/uL (0.20-1.00); Monocytes % (A) 11.9 %; NRBC Per 100 WBC 0 /100 WBCS (0.0-0.0); Neutrophils # (A) 4.32 X 10*3/uL (1.80-7.70); Neutrophils % (A) 65.3 %; Platelet Count 183 X 10*3/uL (140-440); RBC 4.26 X 10*6/uL (4.10-5.20); RDW 13.3 % (11.5-14.5); WBC 6.62 X 10*3/uL (4.50-10.00)
[2022-02-09 11:58] LABS: African American GFR (CKD) 96.2 (60.0-200.0); BUN/Creat Ratio 22.43 Ratio (12.00-20.00); Blood Urea Nitrogen 15.7 mg/dL (9.0-27.0); Calcium 8.8 mg/dL (8.7-10.3); Carbon Dioxide 25.4 mmol/L (20.0-27.5); Chloride 101 mmol/L (96-109); Glucose 121 mg/dL (70-110); Potassium 3.6 mmol/L (3.5-5.5); Sodium 139 mmol/L (135-145)
--- NOTE | 2022-02-09 15:39 | P.PN ---
Progress Note - Text Progress Note Date: 02/09/22 Chief Complaint: Shortness of breath Patient is a 77-year-old female with a known history of asthma, hyperlipidemia presents to ER with complaints of worsening shortness of breath. Patient states that on Monday she started having sore throat and went to see her primary care physician. Patient was given steroid tablets and azithromycin antibiotic course. Patient took last 3 days without significant improvement and presented to ER. Otherwise patient denied any complaints of chest pain. No fever no chills. Patient was also complaining of sinus pain and sore throat. Cough with whitish initially and then into light yellow color. No nausea vomiting. Patient does have upper abdominal discomfort with cough. Next and chest x-ray showed no acute cardio pulmonary disease/process. No significant change from previous exam. Next and EKG showed normal sinus rhythm Laboratory data showed WBC 6.0 hemoglobin 13.2 and platelets 179 Sodium 138 potassium 3.6 chloride 103 bicarb is 26 BUN 17 and creatinine 0.54 living enzymes are not elevated Troponin 1 negative ProBNP 139): 19 not detected. Influenza A and B- 02/09/2022: I assumed the care of the patient from [facility] hospitalist today. Patient rather anxious. Blood pressure running high. Short of breath. Congested cough. Able to bring up yellow thick sputum. Decreased appetite. Sitting at the of the bed. Short of breath. Patient also very anxious as her is also admitted to the hospital. Nebulized Pulmicort added. Some wheezing. Active Medications Acetaminophen (Acetaminophen Tab 325 Mg Tab) 650 mg PO Q4HR PRN PRN Reason: Mild Pain or Fever > 100.5 Last Admin: 02/09/22 00:43 Dose: 650 mg Albuterol Sulfate (Albuterol Nebulized 2.5 Mg/3 Ml) 2.5 mg INHALATION RT-Q4H PRN PRN Reason: Dyspnea Last Admin: 02/09/22 04:27 Dose: 2.5 mg Albuterol/Ipratropium (Ipratropium-Albuterol 3 Ml Neb) 3 ml INHALATION RT-QID REPLACED BY [facility] Last Admin: 02/09/22 11:46 Dose: 3 ml Budesonide (Budesonide 1 Mg/2 Ml Nebu) 1 mg INHALATION RT-BID BROWN Last Admin: 02/09/22 11:46 Dose: Not Given Carvedilol (Carvedilol 3.125 Mg Tab) 3.125 mg PO BID-W/MEALS REPLACED BY [facility] Last Admin: 02/09/22 01:56 Dose: 3.125 mg Heparin Sodium (Porcine) (Heparin Sodium,Porcine/Pf 5,000 Unit/0.5 Ml Syringe) 5,000 unit SQ Q8HR REPLACED BY [facility] Last Admin: 02/09/22 09:08 Dose: Not Given Ceftriaxone Sodium 1 gm/ (Sodium Chloride) 50 mls @ 100 mls/hr IVPB Q24H REPLACED BY [facility]; Protocol Last Admin: 02/08/22 16:41 Dose: 100 mls/hr Naloxone HCl (Naloxone 0.4 Mg/Ml 1 Ml Vial) 0.2 mg IVP Q2M PRN PRN Reason: Opioid Reversal Prednisone (Prednisone 20 Mg Tab) 40 mg PO DAILY REPLACED BY [facility] Stop: 02/13/22 09:01 Last Admin: 02/09/22 09:08 Dose: 40 mg Valsartan (Valsartan 160 Mg Tab) 320 mg PO DAILY REPLACED BY [facility] Last Admin: 02/09/22 11:20 Dose: 320 mg Past Medical History Past Medical History: Asthma, Hyperlipidemia Additional Past Medical History / Comment(s): splenic marginal zone lymphoma 2009, osteopenia History of Any Multi-Drug Resistant Organisms: None Reported Past Surgical History: Appendectomy, Hysterectomy, Tubal Ligation Additional Past Surgical History / Comment(s): Colonoscopies/benign polypectomies, bone marrow aspiration. Past Anesthesia/Blood Transfusion Reactions: No Reported Reaction Past Psychological History: No Psychological Hx Reported Smoking Status: Never smoker Past Alcohol Use History: None Reported Past Drug Use History: None Reported - Past Family History Father History Unknown: Yes Additional Family Medical History / Comment(s): Patient is adopted and does not know any of father's hx. Mother History Unknown: Yes Additional Family Medical History / Comment(s): Pt is adopted and does not know any of her natural mother's hx. She has learned that her grandmother and a cousin on her mother's side had breast cancer. Medications and Allergies Home Medications Medication Instructions Recorded Confirmed Type Albuterol Inhaler [Ventolin Hfa 2 puff INHALATION RT-Q4H PRN 12/30/16 02/08/22 History Inhaler] Ascorbic Acid [Vitamin C] 1,000 mg PO DAILY 12/30/16 02/08/22 History Azithromycin [Zithromax Z-pack] See Taper PO DAILY 12/30/16 02/08/22 History Cholecalciferol [Vitamin D3 (25 25 mcg PO DAILY 02/08/22 02/08/22 History Mcg = 1000 Iu)] Vit C/E/Zn/Coppr/Lutein/Zeaxan 1 cap PO DAILY 02/08/22 02/08/22 History [Preservision Areds 2 Softgel] Vitamin E (Dl,Tocopheryl Acet) 400 unit PO DAILY 02/08/22 02/08/22 History [Vitamin E (400 Iu = 180 mg)] carvediloL [Coreg] 3.125 mg PO BID 02/08/22 02/08/22 History predniSONE [Deltasone] See Taper PO DIRECTED 02/08/22 02/08/22 History Allergies Allergy/AdvReac Type Severity Reaction Status Date / Time erythromycin base Allergy Rash/Hives Verified 02/08/22 10:28 Latex, Natural Rubber Allergy Itching Verified 02/08/22 10:28 Sulfa (Sulfonamide Allergy Rash/Hives Verified 02/08/22 10:28 Antibiotics) on chest adhesive tape AdvReac Welts Verified 02/08/22 10:28 oyster extract AdvReac Vomiting Verified 02/08/22 10:28 On examination: VITAL SIGNS: [98.6, 86, 18, 189 and 88, 97% on 2 L GENERAL APPEARANCE: BMI 33.3, sitting up in bed, awake, short of breath HEENT: Normal external appearance of nose and ear. Oral cavity normal EYES: Pupils equal. Conjunctiva normal. NECK: JVD not raised. Mass not palpable. RESPIRATORY: Respiratory effort increased. Diminished breath sounds, prolonged expiration and wheezing CARDIOVASCULAR: First and second sounds normal. No edema. ABDOMEN: Soft. Liver and spleen not palpable. No tenderness. No mass palpable. PSYCHIATRY: Alert and oriented x3. Mood and affect anxious INVESTIGATIONS, reviewed in the clinical context: White count 6.6 1112.7 platelets 183 potassium 3.6 creatinine 0.7 TSH 3.1 COVID 19/influenza type A/influenza type B: Not detected Assessment and plan: -Acute exacerbation of intermittent asthma: Slow to respond Nebulized bronchitis. Steroids. Add nebulized steroids. -Acute tracheobronchitis and pharyngitis IV ceftriaxone -Accelerated hypertension, uncontrolled Coreg. Add Diovan -Obesity BMI 33.3 Weight loss measures -Situational anxiety from being admitted and her patient's also admitted to the hospital. Patient reassured. Continue DuoNeb 4 times a day. Add nebulized Pulmicort. Steroids. On IV ceftriaxone. Prabhjotvan added. Given uncontrolled blood pressure and asthma not controlled patient needs at least 2 overnights in the hospital. Change to inpatient.
[2022-02-09] MEDS ORDERED: amLODIPine 10 MG TAB PO SCH (21:00)
[2022-02-10] MEDS: ALBUTEROL NEBULIZED 2.5 MG/3 ML INHALATION PRN (04:29)
[2022-02-10] MEDS: IPRATROPIUM-ALBUTEROL 3 ML NEB INHALATION SCH ×4 (07:56→19:48)
[2022-02-10] MEDS: BUDESONIDE 1 MG/2 ML NEBU INHALATION SCH ×2 (07:56→19:48)
[2022-02-10] MEDS: ENOXAPARIN 40 MG/0.4 ML SYRINGE SQ SCH (08:21)
[2022-02-10] MEDS: carvediloL 3.125 MG TAB PO SCH ×2 (08:24→08:40)
[2022-02-10] MEDS: amLODIPine 10 MG TAB PO SCH (09:06)
[2022-02-10] MEDS: predniSONE 20 MG TAB PO SCH (09:07)
[2022-02-10] MEDS: VALSARTAN 160 MG TAB PO SCH (09:08)
--- NOTE | 2022-02-10 10:12 | P.PN ---
Subjective Progress Note Date: 02/10/22 HISTORY OF PRESENT ILLNESS: This is a 77 year old female with a past medical history significant for asthma, hypertension, hyperlipidemia, and anxiety. Patient follows in the office with Dr. Leal. We have been asked to see the patient in consultation for hypertension. Patient examined at the bedside. Patient presented to the hospital with a chief complaint of shortness of breath. Patient states she was started on oral steroids by her primary care physician on Monday. She denies any chest pain or pressure. Patient's blood pressures were found to be significantly elevated with a systolic ranging between [id number]. She received a dose of IV hydralazine this morning per primary medicine. * EKG reveals sinus mechanism with right bundle branch block. * Chest xray negative for acute process * Laboratory data: WBC 6.0. Hemoglobin 13.2. Platelet count 179. Sodium 138. Potassium 3.6. BUN 17. Creatinine 0.54. Troponin negative 1. ProBNP 139. * Current home cardiac medications include carvedilol 3.125 mg twice a day * Most recent echocardiogram obtained in October 2020 revealed ejection fraction 55-60%, mild MR 02/10/2022 Patient examined this and at bedside. Patient is extremely anxious this morning. Patient's blood pressure remains elevated with a systolic in the 190s. Patient is currently on valsartan and carvedilol. Discussion was had with the patient yesterday about adding Norvasc. This morning the patient is extremely anxious about having 3 medications for hypertension and is refusing her carvedilol this morning. PHYSICAL EXAM: VITAL SIGNS: Reviewed. GENERAL: Well-developed in no acute distress. HEENT: Head is normocephalic. Pupils are equal, round. Sclerae anicteric. Mucous membranes of the mouth are moist. Neck supple. No JVD or thyromegaly LUNGS: Respirations even and unlabored. Lungs with decreased air exchange HEART: Regular rate and rhythm. S1 and S2 heard. ABDOMEN: Soft. Nondistended. Nontender. EXTREMITIES: Normal range of motion. No clubbing or cyanosis. Peripheral pulses intact. No lower extremity edema NEUROLOGIC: Awake and alert. Oriented x 3. ASSESSMENT: Shortness of breath Acute asthma exacerbation Hypertensive emergency Hyperlipidemia Anxiety PLAN: Discontinue carvedilol Add amlodipine 10 mg daily Continue to monitor blood pressure No further IV anti-hypertensive medications to be given Management of anxiety per internal medicine Further recommendations pending patient's course Nurse practitioner note has been reviewed by physician. Signing provider agrees with the documented findings, assessment, and plan of care. Objective - Vital Signs Vital signs: Vital Signs Temp 98.3 F 02/10/22 07:55 Pulse 74 02/10/22 08:07 Resp 22 02/10/22 07:55 BP 162/92 02/10/22 08:55 Pulse Ox 95 02/10/22 03:49 FiO2 Intake & Output 02/09/22 02/10/22 02/10/22 18:59 06:59 18:59 Intake Total 240 Balance 240 Intake: Oral 240 Other: # Voids 1 1 - Labs CBC & Chem 7: 02/09/22 06:51 02/09/22 06:51 Labs: Abnormal Lab Results - Last 24 Hours (Table) 02/09/22 02/09/22 Range/Units 06:51 06:51 Immature Gran # 0.10 H (0.00-0.04) X 10*3/uL Eosinophils # 0.03 L (0.04-0.35) X 10*3/uL BUN/Creatinine Ratio 22.43 H (12.00-20.00) Ratio Glucose 121 H (70-110) mg/dL Microbiology - Last 24 Hours (Table) 02/08/22 16:20 Blood Culture - Preliminary Blood No Growth after 24 hours 02/08/22 16:05 Blood Culture - Preliminary Blood No Growth after 24 hours
--- NOTE | 2022-02-10 13:58 | P.PN ---
Progress Note - Text Progress Note Date: 02/10/22 Chief Complaint: Shortness of breath Patient is a 77-year-old female with a known history of asthma, hyperlipidemia presents to ER with complaints of worsening shortness of breath. Patient states that on Monday she started having sore throat and went to see her primary care physician. Patient was given steroid tablets and azithromycin antibiotic course. Patient took last 3 days without significant improvement and presented to ER. Otherwise patient denied any complaints of chest pain. No fever no chills. Patient was also complaining of sinus pain and sore throat. Cough with whitish initially and then into light yellow color. No nausea vomiting. Patient does have upper abdominal discomfort with cough. Next and chest x-ray showed no acute cardio pulmonary disease/process. No significant change from previous exam. Next and EKG showed normal sinus rhythm Laboratory data showed WBC 6.0 hemoglobin 13.2 and platelets 179 Sodium 138 potassium 3.6 chloride 103 bicarb is 26 BUN 17 and creatinine 0.54 living enzymes are not elevated Troponin 1 negative ProBNP 139): 19 not detected. Influenza A and B- 02/09/2022: I assumed the care of the patient from [facility] hospitalist today. Patient rather anxious. Blood pressure running high. Short of breath. Congested cough. Able to bring up yellow thick sputum. Decreased appetite. Sitting at the of the bed. Short of breath. Patient also very anxious as her is also admitted to the hospital. Nebulized Pulmicort added. Some wheezing. 02/10/2022: Sore throat better. Doing warm water with salt gargle. Had some wheezing this morning. Continue oral prednisone bronchodilators. Patient is extremely anxious. Wanted to start the patient on Paxil. Discussed at length. Does not want to start the same was discussed with her PCP. Patient also had questions about her is getting discharged today. I think significant component of her blood pressures from anxiety. Coreg was discontinued by cardiology and amlodipine was added for blood pressure. Active Medications Acetaminophen (Acetaminophen Tab 325 Mg Tab) 650 mg PO Q4HR PRN PRN Reason: Mild Pain or Fever > 100.5 Last Admin: 02/09/22 23:35 Dose: 650 mg Albuterol Sulfate (Albuterol Nebulized 2.5 Mg/3 Ml) 2.5 mg INHALATION RT-Q4H PRN PRN Reason: Dyspnea Last Admin: 02/10/22 04:29 Dose: 2.5 mg Albuterol/Ipratropium (Ipratropium-Albuterol 3 Ml Neb) 3 ml INHALATION RT-QID [facility] Last Admin: 02/10/22 11:13 Dose: 3 ml Amlodipine Besylate (Amlodipine 10 Mg Tab) 10 mg PO DAILY [facility] Last Admin: 02/10/22 09:06 Dose: 10 mg Budesonide (Budesonide 1 Mg/2 Ml Nebu) 1 mg INHALATION RT-BID [facility] Last Admin: 02/10/22 07:56 Dose: 1 mg Enoxaparin Sodium (Enoxaparin 40 Mg/0.4 Ml Syringe) 40 mg SQ DAILY [facility] Last Admin: 02/10/22 08:21 Dose: Not Given Ceftriaxone Sodium 1 gm/ (Sodium Chloride) 50 mls @ 100 mls/hr IVPB Q24H [facility]; Protocol Last Admin: 02/09/22 17:11 Dose: 100 mls/hr Naloxone HCl (Naloxone 0.4 Mg/Ml 1 Ml Vial) 0.2 mg IVP Q2M PRN PRN Reason: Opioid Reversal Prednisone (Prednisone 20 Mg Tab) 40 mg PO DAILY [facility] Stop: 02/13/22 09:01 Last Admin: 02/10/22 09:07 Dose: 40 mg Valsartan (Valsartan 160 Mg Tab) 320 mg PO DAILY [facility] Last Admin: 02/10/22 09:08 Dose: 320 mg Past Medical History Past Medical History: Asthma, Hyperlipidemia Additional Past Medical History / Comment(s): splenic marginal zone lymphoma 2009, osteopenia History of Any Multi-Drug Resistant Organisms: None Reported Past Surgical History: Appendectomy, Hysterectomy, Tubal Ligation Additional Past Surgical History / Comment(s): Colonoscopies/benign polypectomies, bone marrow aspiration. Past Anesthesia/Blood Transfusion Reactions: No Reported Reaction Past Psychological History: No Psychological Hx Reported Smoking Status: Never smoker Past Alcohol Use History: None Reported Past Drug Use History: None Reported - Past Family History Father History Unknown: Yes Additional Family Medical History / Comment(s): Patient is adopted and does not know any of father's hx. Mother History Unknown: Yes Additional Family Medical History / Comment(s): Pt is adopted and does not know any of her natural mother's hx. She has learned that her grandmother and a cousin on her mother's side had breast cancer. Medications and Allergies Home Medications Medication Instructions Recorded Confirmed Type Albuterol Inhaler [Ventolin Hfa 2 puff INHALATION RT-Q4H PRN 12/30/16 02/08/22 History Inhaler] Ascorbic Acid [Vitamin C] 1,000 mg PO DAILY 12/30/16 02/08/22 History Azithromycin [Zithromax Z-pack] See Taper PO DAILY 12/30/16 02/08/22 History Cholecalciferol [Vitamin D3 (25 25 mcg PO DAILY 02/08/22 02/08/22 History Mcg = 1000 Iu)] Vit C/E/Zn/Coppr/Lutein/Zeaxan 1 cap PO DAILY 02/08/22 02/08/22 History [Preservision Areds 2 Softgel] Vitamin E (Dl,Tocopheryl Acet) 400 unit PO DAILY 02/08/22 02/08/22 History [Vitamin E (400 Iu = 180 mg)] carvediloL [Coreg] 3.125 mg PO BID 02/08/22 02/08/22 History predniSONE [Deltasone] See Taper PO DIRECTED 02/08/22 02/08/22 History Allergies Allergy/AdvReac Type Severity Reaction Status Date / Time erythromycin base Allergy Rash/Hives Verified 02/08/22 10:28 Latex, Natural Rubber Allergy Itching Verified 02/08/22 10:28 Sulfa (Sulfonamide Allergy Rash/Hives Verified 02/08/22 10:28 Antibiotics) on chest adhesive tape AdvReac Welts Verified 02/08/22 10:28 oyster extract AdvReac Vomiting Verified 02/08/22 10:28 On examination: VITAL SIGNS: 98.3, 74, 22, 182/70 GENERAL APPEARANCE: Anxious, coughing while talking HEENT: Normal external appearance of nose and ear. Some redness in the pharynx EYES: Pupils equal. Conjunctiva normal. NECK: JVD not raised. Mass not palpable. RESPIRATORY: Respiratory effort increased. Diminished breath sounds, some wheezing CARDIOVASCULAR: First and second sounds normal. No edema. ABDOMEN: Soft. Liver and spleen not palpable. No tenderness. No mass palpable. PSYCHIATRY: Alert and oriented x3. Mood and affect very anxious INVESTIGATIONS, reviewed in the clinical context: White count 6.6 1112.7 platelets 183 potassium 3.6 creatinine 0.7 TSH 3.1 COVID 19/influenza type A/influenza type B: Not detected Assessment and plan: -Acute exacerbation of intermittent asthma: Some improvement Nebulized bronchitis. Steroids. nebulized steroids. -Acute tracheobronchitis and acute pharyngitis IV ceftriaxone-changed to doxycycline -Accelerated hypertension, uncontrolled. Significant component from underlying anxiety. Coreg discontinued. Amlodipine added.. Diovan -Obesity BMI 33.3 Weight loss measures -Situational anxiety, in addition to baseline anxiety from being admitted and her patient's also admitted to the hospital.: Uncontrolled Wanted to prescribe Paxil but patient very reluctant to take same. Wants to discuss this with her PCP. Continue current medications. Coreg discontinued by cardiology, amlodipine added. Patient is declining to use Paxil for anxiety which seems to contribution to blood pressure. Total time spent today about 40 minutes with over 30 minutes of discussion
[2022-02-11] MEDS: ACETAMINOPHEN TAB 325 MG TAB PO PRN (04:07)
[2022-02-11] MEDS: BUDESONIDE 1 MG/2 ML NEBU INHALATION SCH (07:17)
[2022-02-11] MEDS: IPRATROPIUM-ALBUTEROL 3 ML NEB INHALATION SCH ×2 (07:17→11:43)
[2022-02-11] MEDS: ENOXAPARIN 40 MG/0.4 ML SYRINGE SQ SCH (07:47)
[2022-02-11 07:51] VITALS: BP 164/80; PULSE 93; RESP 22; TEMP 98.1
[2022-02-11] MEDS: amLODIPine 10 MG TAB PO SCH (08:25)
[2022-02-11] MEDS: predniSONE 20 MG TAB PO SCH (08:26)
[2022-02-11] MEDS: VALSARTAN 160 MG TAB PO SCH (08:26)
--- NOTE | 2022-02-11 10:15 | P.PN ---
Subjective Progress Note Date: 02/11/22 HISTORY OF PRESENT ILLNESS: This is a 77 year old female with a past medical history significant for asthma, hypertension, hyperlipidemia, and anxiety. Patient follows in the office with Dr. Leal. We have been asked to see the patient in consultation for hypertension. Patient examined at the bedside. Patient presented to the hospital with a chief complaint of shortness of breath. Patient states she was started on oral steroids by her primary care physician on Monday. She denies any chest pain or pressure. Patient's blood pressures were found to be significantly elevated with a systolic ranging between [id number]. She received a dose of IV hydralazine this morning per primary medicine. * EKG reveals sinus mechanism with right bundle branch block. * Chest xray negative for acute process * Laboratory data: WBC 6.0. Hemoglobin 13.2. Platelet count 179. Sodium 138. Potassium 3.6. BUN 17. Creatinine 0.54. Troponin negative 1. ProBNP 139. * Current home cardiac medications include carvedilol 3.125 mg twice a day * Most recent echocardiogram obtained in October 2020 revealed ejection fraction 55-60%, mild MR 02/10/2022 Patient examined this and at bedside. Patient is extremely anxious this morning. Patient's blood pressure remains elevated with a systolic in the 190s. Patient is currently on valsartan and carvedilol. Discussion was had with the patient yesterday about adding Norvasc. This morning the patient is extremely anxious about having 3 medications for hypertension and is refusing her carvedilol this morning. 02/11/2022 Patient examined this might the bedside. Patient denies chest pain or pressure. Blood pressure slightly better today with a systolic in the 160s. PHYSICAL EXAM: VITAL SIGNS: Reviewed. GENERAL: Well-developed in no acute distress. HEENT: Head is normocephalic. Pupils are equal, round. Sclerae anicteric. Mucous membranes of the mouth are moist. Neck supple. No JVD or thyromegaly LUNGS: Respirations even and unlabored. Lungs with decreased air exchange HEART: Regular rate and rhythm. S1 and S2 heard. ABDOMEN: Soft. Nondistended. Nontender. EXTREMITIES: Normal range of motion. No clubbing or cyanosis. Peripheral pulses intact. No lower extremity edema NEUROLOGIC: Awake and alert. Oriented x 3. ASSESSMENT: Shortness of breath Acute asthma exacerbation Hypertensive emergency Hyperlipidemia Anxiety PLAN: Continue current cardiac medications Patient is stable for discharge home today from a cardiac standpoint She is to follow up in the office in 2 weeks. Her blood pressure will be reevaluated at that time and further adjustment will be made as necessary We will sign off. Please reconsult if needed. Nurse practitioner note has been reviewed by physician. Signing provider agrees with the documented findings, assessment, and plan of care. Objective - Vital Signs Vital signs: Vital Signs Temp 98.1 F 02/11/22 07:46 Pulse 93 02/11/22 07:46 Resp 22 02/11/22 07:46 BP 164/80 02/11/22 07:46 Pulse Ox 96 02/11/22 07:46 FiO2 Intake & Output 02/10/22 02/11/22 02/11/22 18:59 06:59 18:59 Intake Total 1200 240 Balance 1200 240 Intake: Oral 1200 240 Other: Voiding Method Toilet # Voids 8 2 - Labs CBC & Chem 7: 02/09/22 06:51 02/09/22 06:51 Labs: Microbiology - Last 24 Hours (Table) 02/08/22 16:05 Blood Culture - Preliminary Blood No Growth after 48 hours 02/08/22 16:20 Blood Culture - Preliminary Blood No Growth after 48 hours
--- NOTE | 2022-02-11 13:17 | P.DS ---
Providers Date of admission: 02/09/22 10:08 Expected date of discharge: 02/11/22 Attending physician: Ilan Sarah Primary care physician: Franki Diego [facility] Course: Chief Complaint: Shortness of breath Patient is a 77-year-old female with a known history of asthma, hyperlipidemia presents to ER with complaints of worsening shortness of breath. Patient states that on Monday she started having sore throat and went to see her primary care physician. Patient was given steroid tablets and azithromycin antibiotic course. Patient took last 3 days without significant improvement and presented to ER. Otherwise patient denied any complaints of chest pain. No fever no chills. Patient was also complaining of sinus pain and sore throat. Cough with whitish initially and then into light yellow color. No nausea vomiting. Patient does have upper abdominal discomfort with cough. Next and chest x-ray showed no acute cardio pulmonary disease/process. No significant change from previous exam. Next and EKG showed normal sinus rhythm Laboratory data showed WBC 6.0 hemoglobin 13.2 and platelets 179 Sodium 138 potassium 3.6 chloride 103 bicarb is 26 BUN 17 and creatinine 0.54 living enzymes are not elevated Troponin 1 negative ProBNP 139): 19 not detected. Influenza A and B- 02/09/2022: I assumed the care of the patient from [facility] Hospitalist today. Patient rather anxious. Blood pressure running high. Short of breath. Congested cough. Able to bring up yellow thick sputum. Decreased appetite. Sitting at the of the bed. Short of breath. Patient also very anxious as her is also admitted to the hospital. Nebulized Pulmicort added. Some wheezing. 02/10/2022: Sore throat better. Doing warm water with salt gargle. Had some wheezing this morning. Continue oral prednisone bronchodilators. Patient is extremely anxious. Wanted to start the patient on Paxil. Discussed at length. Does not want to start the same was discussed with her PCP. Patient also had questions about her is getting discharged today. I think significant component of her blood pressures from anxiety. Coreg was discontinued by cardiology and amlodipine was added for blood pressure. 02/11/2022: Improvement in the sore throat. Local care discussed. Breathing better. Patient's care was discussed length. We'll add beclomethasone inhaler for discharge and a short course of prednisone taper. Patient will follow-up with her family doctor regarding taking Paxil for anxiety which is contribution to her elevated blood pressure. Medications were discussed. Short course of d oxycycline for bronchitis to bringing out some yellow-brown sputum. Discussion and discharge planning more than 35 minutes Past Medical History Past Medical History: Asthma, Hyperlipidemia Additional Past Medical History / Comment(s): splenic marginal zone lymphoma 2008, osteopenia History of Any Multi-Drug Resistant Organisms: None Reported Past Surgical History: Appendectomy, Hysterectomy, Tubal Ligation Additional Past Surgical History / Comment(s): Colonoscopies/benign polypectomies, bone marrow aspiration. Past Anesthesia/Blood Transfusion Reactions: No Reported Reaction Past Psychological History: No Psychological Hx Reported Smoking Status: Never smoker Past Alcohol Use History: None Reported Past Drug Use History: None Reported - Past Family History Father History Unknown: Yes Additional Family Medical History / Comment(s): Patient is adopted and does not know any of father's hx. Mother History Unknown: Yes Additional Family Medical History / Comment(s): Pt is adopted and does not know any of her natural mother's hx. She has learned that her grandmother and a cousin on her mother's side had breast cancer. Medications and Allergies Home Medications Medication Instructions Recorded Confirmed Type Albuterol Inhaler [Ventolin Hfa 2 puff INHALATION RT-Q4H PRN 12/30/16 02/08/22 History Inhaler] Ascorbic Acid [Vitamin C] 1,000 mg PO DAILY 12/30/16 02/08/22 History Azithromycin [Zithromax Z-pack] See Taper PO DAILY 12/30/16 02/08/22 History Cholecalciferol [Vitamin D3 (25 25 mcg PO DAILY 02/08/22 02/08/22 History Mcg = 1000 Iu)] Vit C/E/Zn/Coppr/Lutein/Zeaxan 1 cap PO DAILY 02/08/22 02/08/22 History [Preservision Areds 2 Softgel] Vitamin E (Dl,Tocopheryl Acet) 400 unit PO DAILY 02/08/22 02/08/22 History [Vitamin E (400 Iu = 180 mg)] carvediloL [Coreg] 3.125 mg PO BID 02/08/22 02/08/22 History predniSONE [Deltasone] See Taper PO DIRECTED 02/08/22 02/08/22 History Allergies Allergy/AdvReac Type Severity Reaction Status Date / Time erythromycin base Allergy Rash/Hives Verified 02/08/22 10:28 Latex, Natural Rubber Allergy Itching Verified 02/08/22 10:28 Sulfa (Sulfonamide Allergy Rash/Hives Verified 02/08/22 10:28 Antibiotics) on chest adhesive tape AdvReac Welts Verified 02/08/22 10:28 oyster extract AdvReac Vomiting Verified 02/08/22 10:28 On examination: VITAL SIGNS: 98.1, 93, 22, 164/80, 96% room air GENERAL APPEARANCE: Anxious, , sitting at edge of the bed HEENT: Normal external appearance of nose and ear. redness in the pharynx EYES: Pupils equal. Conjunctiva normal. NECK: JVD not raised. Mass not palpable. RESPIRATORY: Respiratory effort normal. Fair air entry CARDIOVASCULAR: First and second sounds normal. No edema. ABDOMEN: Soft. Liver and spleen not palpable. No tenderness. No mass palpable. PSYCHIATRY: Alert and oriented x3. Mood and affect very anxious INVESTIGATIONS, reviewed in the clinical context: White count 6.6 1112.7 platelets 183 potassium 3.6 creatinine 0.7 TSH 3.1 COVID 19/influenza type A/influenza type B: Not detected Assessment and plan: -Acute exacerbation of intermittent asthma: Better Nebulized bronchitis. Steroids. nebulized steroids. Discharged home on albuterol when necessary. Beclomethasone 1 puff twice a day. Short prednisone taper -Acute tracheobronchitis and acute pharyngitis doxycycline -Accelerated hypertension, Significant component from underlying anxiety. Coreg discontinued. Amlodipine . Diovan -Obesity BMI 33.3 Weight loss measures -Situational anxiety, in addition to baseline anxiety from being admitted and her patient's also admitted to the hospital.: Uncontrolled Wanted to prescribe Paxil but patient very reluctant to take same. Wants to discuss this with her PCP. Disposition: Home Plan - Discharge Summary Discharge Rx Participant: No New Discharge Prescriptions: New amLODIPine [Norvasc] 10 mg PO DAILY #30 tab Valsartan 320 mg PO HS #30 tab Doxycycline [Vibramycin] 100 mg PO BID #6 capsule Beclomethasone Dip 80 Mcg/Puff [Qvar 80 mcg] 1 puff INHALATION BID #8.7 gm Continue Albuterol Inhaler [Ventolin Hfa Inhaler] 2 puff INHALATION RT-Q4H PRN PRN Reason: Shortness Of Breath predniSONE [Deltasone] See Taper PO DIRECTED #16 tab Discontinued Azithromycin [Zithromax Z-pack] See Taper PO DAILY carvediloL [Coreg] 3.125 mg PO BID No Action Ascorbic Acid [Vitamin C] 1,000 mg PO DAILY Vit C/E/Zn/Coppr/Lutein/Zeaxan [Preservision Areds 2 Softgel] 1 cap PO DAILY Cholecalciferol [Vitamin D3 (25 Mcg = 1000 Iu)] 25 mcg PO DAILY Vitamin E (Dl,Tocopheryl Acet) [Vitamin E (400 Iu = 180 mg)] 400 unit PO DAILY Discharge Medication List Albuterol Inhaler [Ventolin Hfa Inhaler] 2 puff INHALATION RT-Q4H PRN 12/30/16 [History] Ascorbic Acid [Vitamin C] 1,000 mg PO DAILY 12/30/16 [History] Cholecalciferol [Vitamin D3 (25 Mcg = 1000 Iu)] 25 mcg PO DAILY 02/08/22 [History] Vit C/E/Zn/Coppr/Lutein/Zeaxan [Preservision Areds 2 Softgel] 1 cap PO DAILY 02/08/22 [History] Vitamin E (Dl,Tocopheryl Acet) [Vitamin E (400 Iu = 180 mg)] 400 unit PO DAILY 02/08/22 [History] Beclomethasone Dip 80 Mcg/Puff [Qvar 80 mcg] 1 puff INHALATION BID #8.7 gm 02/11/22 [Rx] Doxycycline [Vibramycin] 100 mg PO BID #6 capsule 02/11/22 [Rx] Valsartan 320 mg PO HS #30 tab 02/11/22 [Rx] amLODIPine [Norvasc] 10 mg PO DAILY #30 tab 02/11/22 [Rx] predniSONE [Deltasone] See Taper PO DIRECTED #16 tab 02/11/22 [Rx] Follow up Appointment(s)/Referral(s): Wayne Gregory MD [STAFF PHYSICIAN] - 2 Weeks Franki Diego MD [Primary Care Provider] - 1-2 days Patient Instructions/Handouts: Asthma (ED) Discharge Disposition: HOME SELF-CARE
== END 2022-02-11 11:43 | disposition home or self-care (01) | DRG 202 ==
LOC: EC 08:32 → 6NMEDSUR 12:53 → OBSVTOIN 02-09 10:08
PROVIDERS: ADMIT Hospitalist; ATTEND Hospitalist
DX: J45.21 Mild intermittent asthma with (acute) exacerbation (principal); I16.1 Hypertensive emergency; E66.9 Obesity, unspecified; Z20.822 Contact with and (suspected) exposure to COVID-19; J20.9 Acute bronchitis, unspecified; J02.9 Acute pharyngitis, unspecified; I10 Essential (primary) hypertension; F06.4 Anxiety disorder due to known physiological condition; I45.10 Unspecified right bundle-branch block; E78.5 Hyperlipidemia, unspecified; M85.80 Other specified disorders of bone density and structure, unspecified site; Z68.33 Body mass index [BMI] 33.0-33.9, adult; Z79.899 Other long term (current) drug therapy; Z85.72 Personal history of non-Hodgkin lymphomas; Z87.891 Personal history of nicotine dependence; Z88.1 Allergy status to other antibiotic agents; Z91.040 Latex allergy status; Z88.2 Allergy status to sulfonamides; Z91.013 Allergy to seafood
CPT/HCPCS: 36415; 71046; 80048; 80053; 83880; 84443; 84484; 85025; 85610; 85730; 87040; 87502; 87635; 93005; 94640; 96365; 96375; 99285

== ENCOUNTER → 2022-03-30 | Outpatient (CLI) | payer MEDICARE ==
--- NOTE | 2022-03-30 17:50 | XR ---
EXAMINATION TYPE: XR lumbosacral spine min 4V DATE OF EXAM: 03/30/2022 COMPARISON: 07/14/2017 HISTORY: Dorsalgia, right hip pain TECHNIQUE: 5 view lumbar spine FINDINGS: There are 5 lumbar-type vertebral bodies. Pedicles are intact. No spondylolytic defects are evident. Facet degenerative changes are present. Disc heights have mild narrowing L4-5 and L5-S1. Re maining disc heights are preserved. Vertebral body heights are preserved. IMPRESSION: 1. Mild degenerative disc changes L4-5 and L5-S1, similar to prior exam.
--- NOTE | 2022-03-30 17:51 | XR ---
EXAMINATION TYPE: XR ankle complete RT DATE OF EXAM: 03/30/2022 COMPARISON: None HISTORY: Pain TECHNIQUE: 3 view right ankle FINDINGS: Ankle mortise is intact. No acute fracture or dislocation is evident. Soft tissues are norm al. Tiny Achilles tendon calcaneal heel spur is present. Follow up study can be performed 7-10 days from acute trauma for continued pain. IMPRESSION: 1. No acute osseous abnormality right ankle. 2. Tiny Achilles tendon calcaneal heel spur
--- NOTE | 2022-03-30 17:53 | XR ---
EXAMINATION TYPE: XR foot complete RT DATE OF EXAM: 03/30/2022 COMPARISON: None HISTORY: Pain TECHNIQUE: 3 view right foot FINDINGS: There is varus deformity of the distal fourth and fifth digits. Degenerative joint changes are present at first metatarsal-phalangeal joint space. Mild hallux valgus deformity is present. Ther e is flattening of the plantar tendon. Tiny Achilles tendon calcaneal heel spurs present. No acute fractures or dislocations are evident. Soft tissues are normal. Follow up exams can be perfo rmed 7-10 days from acute trauma for continued pain IMPRESSION: 1. No acute osseous abnormality right foot. 2. Flattening of the plantar arch. 3. Degenerative joint change first metatarsophalangeal joint space
--- NOTE | 2022-03-30 17:54 | XR ---
EXAMINATION TYPE: XR Hip Bilateral Complete DATE OF EXAM: 03/30/2022 COMPARISON: None HISTORY: Pain TECHNIQUE: Bilateral hips 2 views each FINDINGS: Femoral heads articulate with the acetabulum. Joint spaces are preserved. Symphysis pubis and sacroiliac joints are patent. Some degenerative change of sacroiliac joints is pr esent bilaterally. Follow up exams can be performed 7-10 days acute trauma for continued pain. IMPRESSION: 1. No acute osseous abnormalities bilateral hips
== END | disposition home or self-care (01) ==
LOC: RADXRMAIN 09:02
PROVIDERS: ATTEND Pediatrics
DX: M51.37 Other intervertebral disc degeneration, lumbosacral region (principal); M77.31 Calcaneal spur, right foot; M21.41 Flat foot [pes planus] (acquired), right foot; M19.071 Primary osteoarthritis, right ankle and foot; M25.551 Pain in right hip; M25.552 Pain in left hip
CPT/HCPCS: 72110; 73521

== ENCOUNTER 2022-08-14 22:18 | Emergency (ER) | payer MEDICARE ==
[2022-08-14] MEDS ORDERED: OXYMETAZOLINE 0.05% NASL SPRAY 1 SPRAY BOTTLE NASAL STA (23:14)
--- NOTE | 2022-08-14 23:57 | ED ---
General Adult HPI - General Chief complaint: ENT Stated complaint: Nose Bleed Time Seen by Provider: 08/14/22 23:12 Source: patient, EMS Mode of arrival: EMS Limitations: no limitations - History of Present Illness Initial comments: Patient presents to the ED by ambulance for evaluation with her at bedside. Patient states that she developed right-sided epistaxis after blowing her nose at about 9:15 PM this evening. Patient states that she was recently diagnosed with bronchitis, and she states that she has been coughing a lot recently as well. Patient states that she attempted to apply pressure to her nose, but she was unable to control the bleeding, so she called for an ambulance. Patient denies anticoagulant medication use, any pain, headache, nasal pain, fever or chills, chest pain, dizziness/lightheadedness, nausea or vomiting, abdominal pain, or any other symptoms or complaints. - Related Data Home Medications Medication Instructions Recorded Confirmed Albuterol Inhaler [Ventolin Hfa 2 puff INHALATION RT-Q4H PRN 12/30/16 02/08/22 Inhaler] Ascorbic Acid [Vitamin C] 1,000 mg PO DAILY 12/30/16 02/08/22 Cholecalciferol [Vitamin D3 (25 25 mcg PO DAILY 02/08/22 02/08/22 Mcg = 1000 Iu)] Vit C/E/Zn/Coppr/Lutein/Zeaxan 1 cap PO DAILY 02/08/22 02/08/22 [Preservision Areds 2 Softgel] Vitamin E (Dl,Tocopheryl Acet) 400 unit PO DAILY 02/08/22 02/08/22 [Vitamin E (400 Iu = 180 mg)] Previous Rx's Medication Instructions Recorded Beclomethasone Dip 80 Mcg/Puff 1 puff INHALATION BID #8.7 gm 02/11/22 [Qvar 80 mcg] Doxycycline [Vibramycin] 100 mg PO BID #6 capsule 02/11/22 Valsartan 320 mg PO HS #30 tab 02/11/22 amLODIPine [Norvasc] 10 mg PO DAILY #30 tab 02/11/22 predniSONE [Deltasone] See Taper PO DIRECTED #16 tab 02/11/22 Allergies Allergy/AdvReac Type Severity Reaction Status Date / Time erythromycin base Allergy Rash/Hives Verified 08/14/22 22:25 Latex, Natural Rubber Allergy Itching Verified 08/14/22 22:25 Sulfa (Sulfonamide Allergy Rash/Hives Verified 08/14/22 22:25 Antibiotics) on chest adhesive tape AdvReac Welts Verified 08/14/22 22:25 oyster extract AdvReac Vomiting Verified 08/14/22 22:25 Review of Systems ROS Statement: Those systems with pertinent positive or pertinent negative responses have been documented in the HPI. ROS Other: All systems not noted in ROS Statement are negative. Past Medical History Past Medical History: Asthma, Hyperlipidemia Additional Past Medical History / Comment(s): splenic marginal zone lymphoma 2009, osteopenia History of Any Multi-Drug Resistant Organisms: None Reported Past Surgical History: Appendectomy, Hysterectomy, Tubal Ligation Additional Past Surgical History / Comment(s): Colonoscopies/benign polypectomies, bone marrow aspiration. Past Anesthesia/Blood Transfusion Reactions: No Reported Reaction Past Psychological History: No Psychological Hx Reported Smoking Status: Never smoker Past Alcohol Use History: None Reported Past Drug Use History: None Reported - Past Family History Father History Unknown: Yes Additional Family Medical History / Comment(s): Patient is adopted and does not know any of father's hx. Mother History Unknown: Yes Additional Family Medical History / Comment(s): Pt is adopted and does not know any of her natural mother's hx. She has learned that her grandmother and a cousin on her mother's side had breast cancer. General Exam Limitations: no limitations General appearance: alert, in no apparent distress Head exam: Present: atraumatic, normocephalic Eye exam: Present: normal appearance, EOMI ENT exam: Present: mucous membranes moist, other (A fairly large clot is noted in the patient's right nasal cavity without any active epistaxis at this time) Respiratory exam: Present: normal lung sounds bilaterally. Absent: respiratory distress, wheezes, rales, rhonchi, stridor Cardiovascular Exam: Present: regular rate, normal rhythm, normal heart sounds, other (Normal radial pulses bilaterally) GI/Abdominal exam: Present: soft. Absent: distended, tenderness, guarding Neurological exam: Present: alert, oriented X3 Psychiatric exam: Present: normal affect, normal mood Skin exam: Present: warm, dry, intact, normal color Course Vital Signs 08/14/22 08/15/22 22:21 00:25 Temperature 98.6 F 98.2 F Pulse Rate 92 85 Respiratory 18 20 Rate Blood Pressure 198/86 172/74 O2 Sat by Pulse 95 95 Oximetry Procedures - Procedures Initial comment: 0105: An 8 cm Merocel nasal packing was applied to the patient's right nasal cavity myself after verbal consent was obtained. Patient tolerated the procedure well. There were no complications. Medical Decision Making - Medical Decision Making Was pt. sent in by a medical professional or institution (, MARIO, CARGO SERVICE SUPERVISOR, urgent care, hospital, or group home...) When possible be specific @ -No Did you speak to anyone other than the patient for history (EMS, parent, family, police, friend...)? What history was obtained from this source @ -No Did you review nursing and triage notes (agree or disagree)? Why? @ -I reviewed and agree with nursing and triage notes Were old charts reviewed (outside hosp., previous admission, EMS record, old EKG, old radiological studies, urgent care reports/EKG's, group home records)? Report findings @ -No old charts were reviewed Differential Diagnosis (chest pain, altered mental status, abdominal pain women, abdominal pain men, vaginal bleeding, weakness, fever, dyspnea, syncope, headache, dizziness, GI bleed, back pain, seizure, CVA, palpatations, mental health, musculoskeletal)? @ -Epistaxis, coagulopathy, anemia, medication reaction, bronchitis, viral illness, upper respiratory infection, deviated nasal septum EKG interpreted by me (3pts min.). @ -None done X-rays interpreted by me (1pt min.). @ -None done CT interpreted by me (1pt min.). @ -None done U/S interpreted by me (1pt. min.). @ -None done What testing was considered but not performed or refused? (CT, X-rays, U/S, labs)? Why? @ -None What meds were considered but not given or refused? Why? @ -None Did you discuss the management of the patient with other professionals (professionals i.e. MARIO Koo, CARGO SERVICE SUPERVISOR, lab, RT, psych nurse, social services director, unit aid, teacher, forest fire officer, case specialist)? Give summary @ -No Was smoking cessation discussed for >3mins.? @ -No Was critical care preformed (if so, how long)? @ -No Were there social determinants of health that impacted care today? How? (Homelessness, low income, unemployed, alcoholism, drug addiction, transportation, low edu. Level, literacy, decrease access to med. care, longterm, rehab)? @ -No Was there de-escalation of care discussed even if they declined (Discuss DNR or withdrawal of care, Hospice)? DNR status @ -No What co-morbidities impacted this encounter? (DM, HTN, Smoking, COPD, CAD, Cancer, CVA, ARF, Chemo, Hep., AIDS, mental health diagnosis, sleep apnea, morbid obesity)? @ -None Was patient admitted / discharged? Hospital course, mention meds given and route, prescriptions, significant lab abnormalities, going to OR and other pertinent info. @ -Afrin nasal spray was administered shortly after patient's arrival to the ED and patient was asked to apply pressure. Patient's epistaxis resolved with the se measures. Patient still wished for a nasal packing to be applied, so I applied and eats in a major Merocel packing to the patient's right nasal cavity. Patient's hemoglobin is within normal limits/stable. Patient's coags are within normal limits. Patient is hemodynamically stable. Patient has no active epistaxis at this time. Patient was counseled about epistaxis, and she was clearly explained return and follow-up instructions. Patient was instructed to follow up with her primary care provider or return to the emergency department in 2 days for nasal packing removal. Patient feels comfortable with this plan. Will discharge patient home at this time. Undiagnosed new problem with uncertain prognosis? @ -No Drug Therapy requiring intensive monitoring for toxicity (Heparin, Nitro, Insulin, Cardizem)? @ -No Were any procedures done? @ -Right nasal cavity Merocel packing application. Diagnosis/symptom? @ -Epistaxis Acute, or Chronic, or Acute on Chronic? @ -Acute Uncomplicated (without systemic symptoms) or Complicated (systemic symptoms)? @ -Uncomplicated Side effects of treatment? @ -No Exacerbation, Progression, or Severe Exacerbation? @ -No Poses a threat to life or bodily function? How? (Chest pain, [place], [place], pneumonia, PE, COPD, DKA, ARF, appy, cholecystitis, CVA, Diverticulitis, Homicidal, Suicidal, threat to staff... and all critical care pts) @ -No - Lab Data Result diagrams: 08/14/22 23:12 Lab Results 08/14/22 08/14/22 Range/Units 23:12 23:12 WBC 9.3 (3.8-10.6) k/uL RBC 4.19 (3.80-5.40) m/uL Hgb 12.3 (11.4-16.0) gm/dL Hct 36.1 (34.0-46.0) % MCV 86.1 (80.0-100.0) fL MCH 29.5 (25.0-35.0) pg MCHC 34.2 (31.0-37.0) g/dL RDW 12.9 (11.5-15.5) % Plt Count 239 (150-450) k/uL MPV 8.3 Neutrophils % 75 % Lymphocytes % 12 % Monocytes % 10 % Eosinophils % 0 % Basophils % 0 % Neutrophils # 6.9 (1.3-7.7) k/uL Lymphocytes # 1.1 (1.0-4.8) k/uL Monocytes # 0.9 (0-1.0) k/uL Eosinophils # 0.0 (0-0.7) k/uL Basophils # 0.0 (0-0.2) k/uL PT 11.2 (9.0-12.0) sec INR 1.1 (<1.2) APTT 22.6 (22.0-30.0) sec Disposition Clinical Impression: Epistaxis Disposition: HOME SELF-CARE Condition: Stable Instructions (If sedation given, give patient instructions): Nosebleed (ED) Additional Instructions: Return to the ER immediately should he develop increased bleeding, a fever, increased shortness of breath, feeling dizzy or faint, or new or worsening symptoms. Follow up closely with your primary care provider. Follow up with your primary care provider or return to the emergency department in 2 days for nasal packing removal. Is patient prescribed a controlled substance at d/c from ED?: No Referrals: Franki Diego MD [Primary Care Provider] - 1-2 days Time of Disposition: 01:16
[2022-08-15 00:03] LABS: Basophils % (A) 0 %; Eosinophils % (A) 0 %; HCT 36.1 % (34.0-46.0); HGB 12.3 gm/dL (11.4-16.0); Lymphocytes # (A) 1.1 k/uL (1.0-4.8); Lymphocytes % (A) 12 %; MCH 29.5 pg (25.0-35.0); MCHC 34.2 g/dL (31.0-37.0); MCV 86.1 fL (80.0-100.0); Mean Platelet Volume 8.3; Monocytes # (A) 0.9 k/uL (0-1.0); Monocytes % (A) 10 %; Neutrophils # (A) 6.9 k/uL (1.3-7.7); Neutrophils % (A) 75 %; Platelet Count 239 k/uL (150-450); RBC 4.19 m/uL (3.80-5.40); RDW 12.9 % (11.5-15.5); WBC 9.3 k/uL (3.8-10.6)
[2022-08-15 00:16] LABS: INR 1.1 (<1.2); Partial Thromboplastin Time 22.6 sec (22.0-30.0); Prothrombin Time 11.2 sec (9.0-12.0)
[2022-08-15 01:33] VITALS: BP 169/78; PULSE 77; RESP 18; TEMP 98.5
== END 2022-08-15 01:33 | disposition home or self-care (01) ==
LOC: EC 22:18
DX: R04.0 Epistaxis (principal); J45.909 Unspecified asthma, uncomplicated; Z79.899 Other long term (current) drug therapy; Z88.1 Allergy status to other antibiotic agents; Z88.2 Allergy status to sulfonamides; Z91.040 Latex allergy status; Z91.013 Allergy to seafood; Z91.048 Other nonmedicinal substance allergy status
CPT/HCPCS: 30903; 36415; 85025; 85610; 85730; 99284

== ENCOUNTER 2022-08-15 06:23 | Emergency (ER) | payer MEDICARE ==
[2022-08-15 06:36] VITALS: RESP 20
[2022-08-15] MEDS ORDERED: ONDANSETRON ODT 4 MG TAB PO STA (07:03)
--- NOTE | 2022-08-15 07:35 | ED ---
ENT HPI - General Chief complaint: ENT Stated complaint: blood going down throat Time Seen by Provider: 08/15/22 06:41 Source: patient, RN notes reviewed Mode of arrival: ambulatory Limitations: no limitations - History of Present Illness Initial comments: 77-year-old female presents emergency department for recheck of epistaxis. Patient was here last night for epistaxis. Patient did have nasal packing placed in the right nostril. Patient states that she coughed and there was some blood she was concerned that she is swallowing blood so she presented emergency dept She does have slight nausea. - Related Data Home Medications Medication Instructions Recorded Confirmed Albuterol Inhaler [Ventolin Hfa 2 puff INHALATION RT-Q4H PRN 12/30/16 02/08/22 Inhaler] Ascorbic Acid [Vitamin C] 1,000 mg PO DAILY 12/30/16 02/08/22 Cholecalciferol [Vitamin D3 (25 25 mcg PO DAILY 02/08/22 02/08/22 Mcg = 1000 Iu)] Vit C/E/Zn/Coppr/Lutein/Zeaxan 1 cap PO DAILY 02/08/22 02/08/22 [Preservision Areds 2 Softgel] Vitamin E (Dl,Tocopheryl Acet) 400 unit PO DAILY 02/08/22 02/08/22 [Vitamin E (400 Iu = 180 mg)] Previous Rx's Medication Instructions Recorded Beclomethasone Dip 80 Mcg/Puff 1 puff INHALATION BID #8.7 gm 02/11/22 [Qvar 80 mcg] Doxycycline [Vibramycin] 100 mg PO BID #6 capsule 02/11/22 Valsartan 320 mg PO HS #30 tab 02/11/22 amLODIPine [Norvasc] 10 mg PO DAILY #30 tab 02/11/22 predniSONE [Deltasone] See Taper PO DIRECTED #16 tab 02/11/22 Allergies Allergy/AdvReac Type Severity Reaction Status Date / Time erythromycin base Allergy Rash/Hives Verified 08/14/22 22:25 Latex, Natural Rubber Allergy Itching Verified 08/14/22 22:25 Sulfa (Sulfonamide Allergy Rash/Hives Verified 08/14/22 22:25 Antibiotics) on chest adhesive tape AdvReac Welts Verified 08/14/22 22:25 oyster extract AdvReac Vomiting Verified 08/14/22 22:25 Review of Systems ROS Statement: Those systems with pertinent positive or pertinent negative responses have been documented in the HPI. ROS Other: All systems not noted in ROS Statement are negative. Past Medical History Past Medical History: Asthma, Hyperlipidemia Additional Past Medical History / Comment(s): splenic marginal zone lymphoma 2009, osteopenia History of Any Multi-Drug Resistant Organisms: None Reported Past Surgical History: Appendectomy, Hysterectomy, Tubal Ligation Additional Past Surgical History / Comment(s): Colonoscopies/benign polypectomies, bone marrow aspiration. Past Anesthesia/Blood Transfusion Reactions: No Reported Reaction Past Psychological History: No Psychological Hx Reported Smoking Status: Never smoker Past Alcohol Use History: None Reported Past Drug Use History: None Reported - Past Family History Father History Unknown: Yes Additional Family Medical History / Comment(s): Patient is adopted and does not know any of father's hx. Mother History Unknown: Yes Additional Family Medical History / Comment(s): Pt is adopted and does not know any of her natural mother's hx. She has learned that her grandmother and a cousin on her mother's side had breast cancer. General Exam Limitations: no limitations General appearance: alert, in no apparent distress Head exam: Present: atraumatic, normocephalic, normal inspection Eye exam: Present: normal appearance, PERRL, EOMI. Absent: scleral icterus, conjunctival injection, periorbital swelling ENT exam: Present: normal oropharynx, mucous membranes moist, TM's normal bilaterally, normal external ear exam, other (Packing in the right nostril) Neck exam: Present: normal inspection, full ROM. Absent: tenderness, meningismus, lymphadenopathy Respiratory exam: Present: normal lung sounds bilaterally. Absent: respiratory distress, wheezes, rales, rhonchi, stridor Cardiovascular Exam: Present: regular rate, normal rhythm, normal heart sounds. Absent: systolic murmur, diastolic murmur, rubs, gallop, clicks Course Vital Signs 08/15/22 06:30 Temperature 98.4 F Pulse Rate 98 Respiratory 20 Rate Blood Pressure 186/89 O2 Sat by Pulse 98 Oximetry Medical Decision Making - Medical Decision Making Was pt. sent in by a medical professional or institution (, PA, GAS TRANSFER OPERATOR, urgent care, hospital, or longterm...) When possible be specific @ -No Did you speak to anyone other than the patient for history (EMS, parent, family, police, friend...)? What history was obtained from this source @ -No Did you review nursing and triage notes (agree or disagree)? Why? @ -I reviewed and agree with nursing and triage notes Were old charts reviewed (outside hosp., previous admission, EMS record, old EKG, old radiological studies, urgent care reports/EKG's, longterm records)? Report findings @ -Reviewed prior records including nasal packing, reviewed CBC, PT/INR and PTT Differential Diagnosis (chest pain, altered mental status, abdominal pain women, abdominal pain men, vaginal bleeding, weakness, fever, dyspnea, syncope, headache, dizziness, GI bleed, back pain, seizure, CVA, palpatations, mental health, musculoskeletal)? @ -Epistaxis, postnasal drainage EKG interpreted by me (3pts min.). @ -None X-rays interpreted by me (1pt min.). @ -None done CT interpreted by me (1pt min.). @ -None done U/S interpreted by me (1pt. min.). @ -None done What testing was considered but not performed or refused? (CT, X-rays, U/S, labs)? Why? @ -None What meds were considered but not given or refused? Why? @ -None Did you discuss the management of the patient with other professionals (professionals i.e. , PA, GAS TRANSFER OPERATOR, lab, RT, psych nurse, social media developer, hand former helper, teacher, cavalry officer, social work case manager)? Give summary @ -No Was smoking cessation discussed for >3mins.? @ -No Was critical care preformed (if so, how long)? @ -No Were there social determinants of health that impacted care today? How? (Homelessness, low income, unemployed, alcoholism, drug addiction, transportation, low edu. Level, literacy, decrease access to med. care, half-way, rehab)? @ -No Was there de-escalation of care discussed even if they declined (Discuss DNR or withdrawal of care, Hospice)? DNR status @ -No What co-morbidities impacted this encounter? (DM, HTN, Smoking, COPD, CAD, Cancer, CVA, ARF, Chemo, Hep., AIDS, mental health diagnosis, sleep apnea, morbid obesity)? @ -None Was patient admitted / discharged? Hospital course, mention meds given and route, prescriptions, significant lab abnormalities, going to OR and other pert inent info. @ -Discharge patient was observed for 2 hours patient had no recurrent bleeding patient has no bleeding or posterior pharynx patient's vital are stable patient was discharged in stable condition return parameters were discussed. Undiagnosed new problem with uncertain prognosis? @ -No Drug Therapy requiring intensive monitoring for toxicity (Heparin, Nitro, Insulin, Cardizem)? @ -No Were any procedures done? @ -No Diagnosis/symptom? @ -Epistaxis Acute, or Chronic, or Acute on Chronic? @ -Acute Uncomplicated (without systemic symptoms) or Complicated (systemic symptoms)? @ -Uncomplicated Side effects of treatment? @ -No Exacerbation, Progression, or Severe Exacerbation? @ -No Poses a threat to life or bodily function? How? (Chest pain, [place], [place], pneumonia, PE, COPD, DKA, ARF, appy, cholecystitis, CVA, Diverticulitis, Homicidal, Suicidal, threat to staff... and all critical care pts) @ -No Disposition Clinical Impression: Epistaxis Disposition: HOME SELF-CARE Condition: Stable Instructions (If sedation given, give patient instructions): Nosebleed (ED) Additional Instructions: Please return to the Emergency Department if symptoms worsen or any other concerns. Is patient prescribed a controlled substance at d/c from ED?: No Referrals: Franki Diego MD [Primary Care Provider] - 1-2 days Adam Piña MD [STAFF PHYSICIAN] - 1-2 days Anant Whaley MD [STAFF PHYSICIAN] - 1-2 days Time of Disposition: 08:12
[2022-08-15 08:40] VITALS: BP 172/79; PULSE 85; TEMP 98.3
== END 2022-08-15 08:22 | disposition home or self-care (01) ==
LOC: EC 06:23
DX: R04.0 Epistaxis (principal); J45.909 Unspecified asthma, uncomplicated; Z79.899 Other long term (current) drug therapy; Z88.1 Allergy status to other antibiotic agents; Z88.2 Allergy status to sulfonamides; Z91.040 Latex allergy status; Z91.013 Allergy to seafood; Z91.048 Other nonmedicinal substance allergy status
CPT/HCPCS: 99283

== ENCOUNTER → 2023-03-16 | Outpatient (CLI) | payer MEDICARE ==
[2023-03-16 10:16] LABS: African American GFR (CKD) >90 (>60 ml/min/1.73 sqM); Blood Urea Nitrogen 19 mg/dL (7-17); Non-African American GFR(CKD) 85 (>60 ml/min/1.73 sqM)
--- NOTE | 2023-03-16 11:39 | CT ---
EXAMINATION: CT CHEST, ABDOMEN AND PELVIS WITH IV CONTRAST DATE OF EXAMINATION: 03/16/2023. COMPARISON: None available. INDICATION: Trauma. PROCEDURE: Axial CT of the chest, abdomen and pelvis was performed following the intravenous adminis tration of 100 ml Isovue 300. Coronal and sagittal reformats were performed. CT dose lowering techni ques were used, to include: automated exposure control, adjustment for patient size, and/or use of it erative reconstruction. FINDINGS: CHEST: Mediastinum and [place]: There is no axillary, mediastinal or hilar lymphadenopathy. Pleural and Pericardial spaces: There are no pleural or pericardial effusions. Cardiovascular: There is mild vascular calcification throughout the thoracic aorta without evidence o f aneurysmal dilation or dissection. Pulmonary Artery: There are no central pulmonary arterial filling defects. Lung Parenchyma and Airways: The lungs are clear. ABDOMEN: Liver and Biliary system: There is mild diffuse decreased attenuation of the liver which is compatib le fatty liver infiltration. No suspicious liver lesions are otherwise seen.. Adrenal glands: Normal. Kidneys and ureters: There is a 5 cm simple cyst in the inferior pole the left kidney. Additional bi lobed cyst is seen in the interpolar region of the left kidney with a parapelvic component measuring 4.6 cm in diameter. A definitive suspicious lesion is not seen within the kidneys.. Spleen: The spleen is mildly enlarged measuring 14 cm in craniocaudal dimension.. Pancreas: Normal. Gallbladder: Normal. Lymph nodes, Peritoneum and mesentery: There is no mesenteric or retroperitoneal lymphadenopathy. Gastrointestinal tract: There are no dilated loops of bowel or free intraperitoneal air. . There is a small sliding hiatal hernia. Aorta/IVC: There is mild vascular calcification throughout the abdominal aorta without evidence of aneurysmal dilation or dissection.. IVC normal. Abdominal wall: Normal. PELVIS: Fluid: There is no free fluid in the pelvis. Lymph Nodes: There is no pelvic or inguinal lymphadenopathy.. Urinary bladder: Normal. BONES: There are no osseous destructive lesions.. ADDITIONAL SIGNIFICANT FINDINGS: None. IMPRESSION: 1. No lymphadenopathy seen within the chest, abdomen or pelvis. 2. No acute process seen within the chest, abdomen or pelvis. 3. Mild splenomegaly. 4. Mild hepatic steatosis. 5. Small sliding hiatal hernia.
== END | disposition home or self-care (01) ==
LOC: RADCTMAIN 09:09
PROVIDERS: ATTEND Internal Medicine
DX: C83.07 Small cell B-cell lymphoma, spleen (principal); R16.1 Splenomegaly, not elsewhere classified; K76.0 Fatty (change of) liver, not elsewhere classified; K44.9 Diaphragmatic hernia without obstruction or gangrene
CPT/HCPCS: 82565; 84520; 71260; 74177; 36415; Q9967

== ENCOUNTER → 2024-01-24 | Outpatient (CLI) | payer MEDICARE ==
--- NOTE | 2024-01-24 16:27 | US ---
EXAMINATION TYPE: US extremity nonvasc complete RT DATE OF EXAM: 01/24/2024 COMPARISON: NONE CLINICAL INDICATION: Female, 79 years old with history of M79.671 RIGHT FOOT PAIN; Patient stepped on glass in the arch of her right foot 3 weeks ago and is unsure if there is a piece in her foot now. P atient states she has been having heel and arch pain. Right MSK ultrasound right plantar and foreign body scan per order. TECHNIQUE: Multiple sonographic images along the plantar aspect of the right foot focusing on the pl danilo fascia. FINDINGS: Images show normal thickness of 2 mm at the origin of the plantar fascia. However, approximately 2 cm from the calcaneal insertion, there is fusiform thickening up to 7 mm with subsequent tapering to no rmal size at the arch of the foot and near the ball of the foot. Targeted scanning along the arch of the foot at the site of concern for possible glass fragment shows no retained foreign body material. There may be mild edematous change in this location. IMPRESSION: 1. Thickness at the origin of the plantar fascia appears normal at 2 mm. 2. However, there is focal fusiform thickening up to 7 mm located 2 cm beyond the fascial origin. Thi s is an atypical appearance for plantar fasciitis. Findings may reflect sequela of an old fascial inj ury versus a plantar fibroma. Clinically correlate. 3. No retained glass fragment identified along the plantar arch. [facility], , 01/24/2024 4:25 PM
== END | disposition home or self-care (01) ==
LOC: RADUSWWP 15:43
PROVIDERS: ATTEND Podiatrist Foot & Ankle Surgery
DX: M79.671 Pain in right foot

== ENCOUNTER → 2024-02-20 | Outpatient (CLI) | payer MEDICARE ==
--- NOTE | 2024-02-21 14:34 | MM ---
Reason for Exam: Screening (asymptomatic). Last mammogram was performed 2 year(s) and 6 month(s) ago. Patient History: Menarche at age 11. First Full-Term at age 17. Hysterectomy at age 54. Postmenopausal. Other cancer, age 65. Patient used Estrogen for 10 years. Patient used Hormonal Contraceptives for 10 years. 2001, Cyst Aspiration on the Left side. Maternal grandmother had breast cancer. Maternal cousin had breast cancer. Risk Values: Alicia 5 year model risk: 1.2%. NCI Lifetime model risk: 1.8%. Prior Study Comparison: 08/07/2018 Bilateral Screening Mammogram, [facility]. 06/18/2020 Bilateral Screening Mammogram, [facility]. 09/06/2021 Bilateral MG 3D screening mammo w/cad, [facility]. Tissue Density: The breasts are heterogeneously dense, which may obscure small masses. Findings: Analyzed By CAD. Single craniocaudal view was obtained. The patient refused any further images. The pattern on this single image is stable from the comparison. Benign vascular calcification is present. There are 5 grouped punctate calcifications in the posterior right cranial caudal view. These are a changed and considered suspicious. Overall Assessment: Incomplete: need additional imaging evaluation, BI-RAD 0 Management: Diagnostic Mammogram of both breasts. A negative mammogram report should not preclude additional follow up of suspicious palpable abnormalities. Patient should continue monthly self breast exam. A clinical breast exam by your physician is recommended on an annual basis and results should be correlated with mammographic findings. Note on Alicia scores and lifetime risk: 1. A Alicia score greater than 3% is considered moderate risk. If this is the case, consider specialist referral to assess eligibility for a risk reducing agent. 2. If overall lifetime risk for the development of breast cancer is 20% or higher, the patient may qualify for future screening with alternating mammogram and breast MRI. [facility], , 02/20/2024 4:08 PM. Electronically signed and approved by: Reddy Jackson D.O. Radiologis
== END | disposition home or self-care (01) ==
LOC: RADMAMWWP 12:55
PROVIDERS: ATTEND Family Medicine
DX: Z12.31 Encounter for screening mammogram for malignant neoplasm of breast (principal); R92.333 Mammographic heterogeneous density, bilateral breasts; Z80.3 Family history of malignant neoplasm of breast; Z78.0 Asymptomatic menopausal state
CPT/HCPCS: 77063; 77067